=== PATIENT | female | born 1960 | race Caucasian/White ===

== ENCOUNTER 2019-09-16 12:44 | Inpatient (IN) ==
--- OUTSIDE RECORDS SUMMARY | 2019-09-16 12:46 | External Medical Summary | Continuity of Care Document ---
:1960 Author Name Kyle Chicas Address Unavailable Unavailable , Care Team Providers Name Role Phone Unavailable Unavailable Unavailable PCP, UNKNOWN Unavailable Unavailable Problems Active medical history not documented Allergies and Adverse Reactions No Known Allergies (Allergy) Medications Medications not documented Procedures Procedures not documented Immunizations PPD On: 15-May-2016 Plan of Treatment Planned Observations Planned Goals not documented Results No Known Results Results not documented
[2019-09-16] MEDS ORDERED: SODIUM CHLORIDE 0.9% 1000ML 1,000 ML IV ONE (13:56)
[2019-09-16] MEDS ORDERED: FAMOTIDINE 20MG IV PUSH 20 MG/5 ML SYR IV STA (13:56)
[2019-09-16] MEDS ORDERED: GI COCKTAIL ED USE PO ONE (13:56)
--- NOTE | 2019-09-16 14:07 | Emergency Department Note ---
History of Present Illness General Chief Complaint: Abdominal Pain Stated Complaint: ABDOMINAL PAIN Source: patient Mode of arrival: ambulatory Limitations: no limitations History of Present Illness Provider Complaint: abdominal pain Onset (ago): 1 month(s) Pain Consistency: intermittent Location: epigastric Radiation: none Migration to: no migration Severity: mild Maximum Pain Intensity: 4 Current Pain Intensity: 8 Quality: + stabbing and + sharp Relieved By: + nothing Exacerbated By: + nothing Context: + history of similar episodes Associated Symptoms: + nausea and + vomiting This 59-year-old female patient presents the emergency department today, ambulatory, complaining of abdominal pain. The patient states for the past 1 m ont, she has been experiencing intermittent episodes of epigastric pain. The patient states the pain will come on suddenly and feel like heartburn which progressively worsens and settles into the epigastrium. The patient states she was here on Sunday for this pain, had a negative CT and lab evaluation, was advised to follow-up as an outpatient with her PCP. 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 She does admit to eating meat loaf and mashed potatoes at 5:30 PM for dinner. She states she was told on Sunday that this may be her gallbladder and she will likely require further outpatient work-up, but her PCP cannot see her until this Sunday, the patient feels that she needs answer sooner than that. The patient states the pain she was experiencing overnight seem to somewhat subside approximately 1 hour ago. She has been taking Tylenol and Gaviscon when symptoms flareup without relief. She is currently on Protonix daily which she has been taking for less than 1 week. Patient denies any associated fever. When she experiences the episodes of pain, she does begin experiencing chills and vomiting. She denies any chest pain, dyspnea, lower abdominal pain, dysuria, hematuria, urinary frequency, changes in bowel habits, weakness, back pain, recent trauma, or other associated symptoms. Home Medications Home Medications Medication Instructions Recorded Confirmed Type albuterol sulfate 2 puff INHALATION UD PRN 09/12/19 09/16/19 History hydrochlorothiazide 25 mg PO DAILY 09/12/19 09/16/19 History pantoprazole 40 mg PO DAILY 09/12/19 09/16/19 History Allergies Allergy/AdvReac Type Severity Reaction Status Date / Time No Known Allergies Allergy Unverified 09/16/19 14:29 Past Med/Surg History Medical History Hypertension Social History Feels Safe at Home: Yes Smoking Status: Never smoker Review of Systems A total of 10 systems reviewed and were otherwise negative Physical Exam Vital Signs: Vital Signs - 24 hr 09/16/19 12:46 09/16/19 15:56 Temperature 36.7 C Temperature Source Oral Pulse Rate 75 Pulse Rate [Left F noreen] 61 Pulse Rhythm Regular Pulse Rhythm [Left Finger] Regular Pulse Strength [Le ft Finger] Normal Respiratory Rate 18 16 Respiratory Effort / Characteristics Non-Labored Non-Labored Sponta neous Respiratory Depth Normal Normal Respiratory Patter n Regular Regular Blood Pressure 159/91 H Blood Pressure Ernestine n 113 Blood Pressure Pos ition Sitting Blood Pressure Pos ition [Right Arm] Lying Pulse Oximetry 99 99 Oxygen Delivery Me thod Room Air Room Air Sepsis Recent Feve r Within 48 Hours No Sepsis Action Take n by Nursing No Action Required Physical Exam: VITALS: Vitals are noted on the nurse's note and reviewed by myself. Vital signs stable. GENERAL: This is a 59-year-old obese white female, in no acute distress, nondiaphoretic, well-developed well-nourished. SKIN: The skin was without rashes, erythema, edema, or bruising. There is no tenting of the skin. Capillary refill less than 2 seconds. HEAD: Normocephalic atraumatic. EYES: Conjunctivae without injection, sclerae without icterus. NECK: Supple without nuchal rigidity. No lymphadenopathy. No JVD. HEART: Regular rate and rhythm without murmurs gallops or rubs. LUNGS: Clear to auscultation bilaterally without wheezes, rales or rhonchi. No retractions or accessory muscle use. ABDOMEN: Positive bowel sounds x 4. Normal tympanic percussion. Mild epigastric tenderness palpation. Abdomen is otherwise soft, nontender, without masses or organomegaly. Presley sign negative. No guarding or rebound tenderness. No CVA tenderness bilaterally. MUSCULOSKELETAL: No muscle atrophy, erythema, or edema noted. Full range of motion without joint tenderness in all extremities. No tenderness to palpation. Normal gait. Strength 5/5 throughout. NEURO: Patient was alert and oriented to person place and time. No focal neurological deficits. Course Course The patient was seen and evaluated as above. Previous medical records reviewed. An order was placed for continuous cardiac monitoring. The monitor shows a normal sinus rhythm at a rate of 75 bpm. IV access obtained, labs drawn. Patient medicated with IV fluids, Pepcid, and GI cocktail. Imaging performed and reviewed by myself and radiologist as noted. Labs reviewed by myself. I discussed the findings with the patient at bedside. She was reassessed and is feeling better. I did recommend admission. The patient was agreeable. I discussed the case with my attending. I discussed the case with Nydia Anaya PA-C with [facility]. She did agree to see and evaluate the patient for admission. Administered Medications Discontinued Medications Al Hydrox/Mg Hydrox/Simethicone () 1 dose PO ONE ONE Stop: 09/16/19 13:57 Last Admin: 09/16/19 14:20 Dose: 1 dose Documented by: [id number] Sodium Chloride (Nss 1000ml) 1,000 mls @ 999 mls/hr IV .Q1H1M ONE Stop: 09/16/19 14:56 Last Infusion: 09/16/19 15:21 Dose: 0 mls/hr Documented by: [id number] Admin: 09/16/19 14:20 Dose: 999 mls/hr Documented by: [id number] Famotidine (Pepcid 20mg Iv Push) 20 mg in 5 mls @ 2.5 mls/min IV NOW STA Stop: 09/16/19 13:57 Last Admin: 09/16/19 14:20 Dose: 2.5 mls/min Documented by: [id number] Medical Decision Making Differential Diagnosis + peptic ulcer disease, + biliary pathology, + UTI, + obstruction, + mesenteric ischemia, + aortic pathology, + infections, + inflammatory bowel disease, + renal colic, + tubo-ovarian abscesses (female), + pelvic inflammatory disease (female), + abdominal pain, + appendicitis, + calculus of kidney, + constipation, + diverticulitis, + endometriosis, + gastroenteritis, + panc reatitis and + small bowel obstruction Medical Records Attestation: I reviewed the patient's medical records. Home Medications Current Medication List: was personally reviewed by me Laboratory Data Attestation: I reviewed the patient's lab results. No leukocytosis, anemia, thrombocytopenia. Renal function and electrolytes without significant abnormality. Transaminases elevated with an ALT of 359, AST 466. T bili 1.0. Troponin negative. Lipase greater than 11,000. Result diagrams: 09/16/19 14:02 09/16/19 15:32 Lab Results 09/16/19 09/16/19 09/16/19 Range/Units 14:02 14:02 14:08 WBC 7.03 (4.8-10.8) K/uL RBC 4.54 (4.2-5.4) M/uL Hgb 13.0 (12.0-16.0) g/dL Hct 39.7 (37-47) % MCV 87.4 (80-100) fL MCH 28.6 (25-34) pg MCHC 32.7 (32-36) g/dL RDW Std Deviation 44.6 (36.4-46.3) fL RDW Coeff of Marco A 13.9 (11.5-14.5) % Plt Count 322 (130-400) K/uL MPV 10.0 (7.4-10.4) fL Immature Gran % (Auto) 0.1 % Neut % (Auto) 70.6 % Lymph % (Auto) 19.2 % [place] % (Auto) 8.0 % Eos % (Auto) 1.8 % Baso % (Auto) 0.3 % Neut # (Auto) 4.96 (1.4-6.5) K/uL Lymph # (Auto) 1.35 (1.2-3.4) K/uL [place] # (Auto) 0.56 (0.11-0.59) K/uL Eos # (Auto) 0.13 (0-0.5) K/uL Baso # (Auto) 0.02 (0-0.2) K/uL Immature Gran # (Auto) 0.01 (0.00-0.02) K/uL Sodium 138 (136-145) mmol/L Potassium (3.5-5.1) mmol/L Chloride 104 (98-107) mmol/L Carbon Dioxide 29 (21-32) mmol/L Anion Gap 5.0 (3-11) BUN 18 (7-18) mg/dl Creatinine 0.83 (0.6-1.2) mg/dl Est Cr Clr Drug Dosing 85.9 ml/min Est GFR ( Amer) 90.7 Est GFR (Non-Af Amer) 78.3 BUN/Creatinine Ratio 21.8 H (10-20) Glucose 89 (70-99) mg/dl Calcium 9.2 (8.5-10.1) mg/dl Total Bilirubin 1.0 (0.2-1) mg/dl AST (15-37) U/L ALT 359 H (12-78) U/L Alkaline Phosphatase 117 (45-117) U/L Troponin I (0-0.045) ng/ml Total Protein 7.7 (6.4-8.2) gm/dl Albumin 3.5 (3.4-5.0) gm/dl Globulin 4.2 H (2.5-4.0) gm/dl Albumin/Globulin Ratio 0.8 L (0.9-2) Lipase 24262 H (73-393) U/L Urine Color Dark Yellow Urine Appearance Clear (Clear) Urine pH 8.0 H (4.5-7.5) Ur Specific [place] 1.026 (1.000-1.030) Urine Protein Negative (Negative) Urine Glucose (UA) Negative (Negative) Urine Ketones Negative (Negative) Urine Blood Negative (Negative) Urine Nitrite Negative (Negative) Urine Bilirubin 1+ H (Negative) Urine Urobilinogen Negative (Negative) Ur Leukocyte Esterase Negative (Negative) 09/16/19 Range/Units 15:32 WBC (4.8-10.8) K/uL RBC (4.2-5.4) M/uL Hgb (12.0-16.0) g/dL Hct (37-47) % MCV (80-100) fL MCH (25-34) pg MCHC (32-36) g/dL RDW Std Deviation (36.4-46.3) fL RDW Coeff of Marco A (11.5-14.5) % Plt Count (130-400) K/uL MPV (7.4-10.4) fL Immature Gran % (Auto) % Neut % (Auto) % Lymph % (Auto) % [place] % (Auto) % Eos % (Auto) % Baso % (Auto) % Neut # (Auto) (1.4-6.5) K/uL Lymph # (Auto) (1.2-3.4) K/uL [place] # (Auto) (0.11-0.59) K/uL Eos # (Auto) (0-0.5) K/uL Baso # (Auto) (0-0.2) K/uL Immature Gran # (Auto) (0.00-0.02) K/uL Sodium (136-145) mmol/L Potassium 3.2 L (3.5-5.1) mmol/L Chloride (98-107) mmol/L Carbon Dioxide (21-32) mmol/L Anion Gap (3-11) BUN (7-18) mg/dl Creatinine (0.6-1.2) mg/dl Est Cr Clr Drug Dosing ml/min Est GFR ( Amer) Est GFR (Non-Af Amer) BUN/Creatinine Ratio (10-20) Glucose (70-99) mg/dl Calcium (8.5-10.1) mg/dl Total Bilirubin (0.2-1) mg/dl AST 466 H (15-37) U/L ALT (12-78) U/L Alkaline Phosphatase (45-117) U/L Troponin I < 0.015 (0-0.045) ng/ml Total Protein (6.4-8.2) gm/dl Albumin (3.4-5.0) gm/dl Globulin (2.5-4.0) gm/dl Albumin/Globulin Ratio (0.9-2) Lipase (73-393) U/L Urine Color Urine Appearance (Clear) Urine pH (4.5-7.5) Ur Specific [place] (1.000-1.030) Urine Protein (Negative) Urine Glucose (UA) (Negative) Urine Ketones (Negative) Urine Blood (Negative) Urine Nitrite (Negative) Urine Bilirubin (Negative) Urine Urobilinogen (Negative) Ur Leukocyte Esterase (Negative) Imaging Data Radiologist's Impression: ABDOMINAL ULTRASOUND, RIGHT UPPER QUADRANT HISTORY: Right upper quadrant pain.. COMPARISON: None. FINDINGS: Pancreas: The pancreas demonstrates a normal echotexture. Liver: A 1.1 cm cyst within the left hepatic lobe. Gallbladder: Multiple small gallstones. Gallbladder wall is borderline thickened at 3 mm. No pericholecystic fluid. Negative sonographic Presley sign. CBD: Borderline dilated measuring between 4 and 7 mm. Right kidney: No hydronephrosis. IMPRESSION: 1. Cholelithiasis. There is borderline gallbladder wall thickening at 3 mm. However, there is a negative sonographic Presley sign. 2. Borderline dilated common bile duct measuring between 4 and 7 mm. ACT 112: Negative or not required by law. Electronically signed by: Isaak Doan M.D. 09/16/2019 3:29 PM ECG Data Attestation: I personally reviewed and interpreted this ECG as follows: Indication: abdominal pain Rate (beats per minute): 72 Rhythm: normal sinus Findings: no ST depression, no T-wave inversion, no ST elevation and no acute ischemic change Comparison ECG Date: no prior available Blood Pressure Blood Pressure Findings: Normal blood pressure MDM Narrative This 59-year-old female patient presents the emergency department today for evaluation of epigastric pain. The patient was seen here on Sunday at the request of her PCP due to an elevated lipase. Upon arrival to the ED on Sunday, her lipase was within normal limits, as were her LFTs. Patient had another flareup and episode of pain which began at 1 AM this morning after eating meat loaf and mashed potatoes. She was offered an appointment on Sunday with her PCP, but felt that she wanted to answer sooner because of her job. Work-up here in the ED did show an elevated lipase of greater than 11,000. LFTs were elevated and gallbladder wall thickening at 3 mm with multiple small gallstones and a borderline dilated common bile duct noted on ultrasound. Given the patient's symptoms and findings, I suspect pancreatitis associated with the gallstones as a cause of patient's symptoms. She will be admitted to the hospitalist service for further evaluation management and with gastroenterology consult. Please see hospitalist dictation regarding ongoing management care of this patient. The chart was completed utilizing [employer] Speech voice recognition software. Grammatical errors, random word insertions, pronoun errors, and incomplete sentences are an occasional consequence of this system due to software limitations, ambient noise, and hardware issues. Any formal questions or con cerns about the content, text, or information contained within the body of this dictation should be directly addressed to the provider for clarification. Impression & Plan Epigastric abdominal pain, Pancreatitis, Cholelithiasis Discharge Plan Visit Data Chief Complaint: Abdominal Pain Stated Complaint: ABDOMINAL PAIN ED Provider: Theo Santillan ED Midlevel Provider: Paula Hogan Discharge Problem: Epigastric abdominal pain, Pancreatitis, Cholelithiasis Patient Disposition: Admitted As Inpatient Condition: Good Forms Stand Alone Forms: [facility] Emergency Department, Important Visit Information Prescriptions Prescriptions: No Action pantoprazole 40 mg tablet,delayed release (DR/EC) 40 mg PO DAILY RF: 0 hydrochlorothiazide 25 mg tablet 25 mg PO DAILY RF: 0 albuterol sulfate 90 mcg/actuation HFA aerosol inhaler 2 puff INHALATION UD PRN (Reason: Shortness Of Breath Or Wheezing) RF: 0 Referrals Referrals: Isamar Gandara MD [Primary Care Provider] -
[2019-09-16 14:17] LABS: Basophils # (auto) 0.02 K/uL (0-0.2); Basophils % (auto) 0.3 %; Eosinophils # (auto) 0.13 K/uL (0-0.5); Eosinophils % (auto) 1.8 %; Hematocrit (blood only) 39.7 % (37-47); Immature Granulocytes # (auto) 0.01 K/uL (0.00-0.02); Immature Granulocytes % (auto) 0.1 %; Lymphocytes # (auto) 1.35 K/uL (1.2-3.4); Lymphocytes % (auto) 19.2 %; Mean Corpuscular Hemoglobin 28.6 pg (25-34); Mean Corpuscular Hgb Conc 32.7 g/dL (32-36); Mean Corpuscular Volume 87.4 fL (80-100); Monocytes # (auto) 0.56 K/uL (0.11-0.59); Neutrophils # (auto) 4.96 K/uL (1.4-6.5); Neutrophils % (auto) 70.6 %; Platelet Count 322 K/uL (130-400); RDW Coefficient of Variation 13.9 % (11.5-14.5); RDW Standard Deviation 44.6 fL (36.4-46.3); Red Blood Count 4.54 M/uL (4.2-5.4); White Blood Count 7.03 K/uL (4.8-10.8)
--- NOTE | 2019-09-16 14:40 | XRay Report ---
XR chest 1V portable HISTORY: epigastric pain COMPARISON: None. FINDINGS: The lungs are clear. Cardiac silhouette is normal in size. No pleural effusions. No pneumot horax. IMPRESSION: No acute process. ACT 112: Negative or not required by law. Electronically signed by: Isaak Doan M.D. 09/16/2019 2:38 PM
[2019-09-16 14:55] LABS: Albumin Globulin Ratio 0.8 (0.9-2); Albumin Level 3.5 gm/dl (3.4-5.0); BUN Creatinine Ratio 21.8 (10-20); Calcium 9.2 mg/dl (8.5-10.1); Creatinine Clr Calc Pharmacy 85.9 ml/min; Est GFR (African American) 90.7; Est GFR (Non-African American) 78.3; Globulin 4.2 gm/dl (2.5-4.0); Total Protein 7.7 gm/dl (6.4-8.2)
--- NOTE | 2019-09-16 15:30 | Ultrasound Report ---
ABDOMINAL ULTRASOUND, RIGHT UPPER QUADRANT HISTORY: Right upper quadrant pain.. COMPARISON: None. FINDINGS: Pancreas: The pancreas demonstrates a normal echotexture. Liver: A 1.1 cm cyst within the left hepatic lobe. Gallbladder: Multiple small gallstones. Gallbladder wall is borderline thickened at 3 mm. No perichol ecystic fluid. Negative sonographic Presley sign. CBD: Borderline dilated measuring between 4 and 7 mm. Right kidney: No hydronephrosis. IMPRESSION: 1. Cholelithiasis. There is borderline gallbladder wall thickening at 3 mm. However, there is a negat kaleb sonographic Presley sign. 2. Borderline dilated common bile duct measuring between 4 and 7 mm. ACT 112: Negative or not required by law. Electronically signed by: Isaak Doan M.D. 09/16/2019 3:29 PM
[2019-09-16 16:00] LABS: Potassium 3.2 mmol/L (3.5-5.1)
--- NOTE | 2019-09-16 16:00 | Electrocardiogram Report ---
Test Reason : Blood Pressure : / mmHG Vent. Rate : 072 BPM Atrial Rate : 072 BPM P-R Int : 180 ms QRS Dur : 086 ms QT Int : 416 ms P-R-T Axes : 053 -38 016 degrees QTc Int : 455 ms Normal sinus rhythm Possible Left atrial enlargement Left axis deviation Nonspecific T wave abnormality Abnormal ECG No previous ECGs available Confirmed by Duncan Baca [id number]) on 09/16/2019 4:00:13 PM Referred By: REFERRED SELF Confirmed By:Duncan Baca
[2019-09-16 16:05] LABS: Appearance Urine Clear (Clear); Blood Urine Negative (Negative); Color Urine Dark Yellow; Glucose Urine UA Negative (Negative); Ketones Urine Negative (Negative); Leukocyte Esterase Urine Negative (Negative); Nitrite Urine Negative (Negative); Protein Urine Negative (Negative); Specific Gravity Urine 1.026 (1.000-1.030); Urobilinogen Urine Negative (Negative)
[2019-09-16 16:07] LABS: Bilirubin Urine 1+ (Negative)
[2019-09-16 16:08] LABS: Ictotest Urine Positive (Negative)
[2019-09-16 16:09] LABS: Aspartate Aminotransferase 466 U/L (15-37); Troponin I < 0.015 ng/ml (0-0.045)
--- NOTE | 2019-09-16 16:28 | History & Physical Report ---
Date of Service September 16, 2019 Assessment & Plan (1) Pancreatitis: (2) Elevated liver function tests: (3) Cholelithiasis: Pt is 59 y/o F with PMH HTN, diastolic dysfunction presented to ER with c/o epigastric pain started last night. C/O epigastric pain that is sharp and radiates to back that started at 1am and lasted until noon today. Associated with chills when has the pain and vomiting. This has been intermittent over the past month. No ETOH use. In ER afebrile, P: 75, R: 18, BP: 159/91, 99% on RA. No leukocytosis, T Bili: 1.0, AST: 466, ALT: 359, Alk Phos: 117, Lipase: 11,254 ABD US: Cholelithiasis. There is borderline gallbladder wall thickening at 3 mm. However, there is a negative sonographic Presley sign. Borderline dilated common bile duct measuring between 4 and 7 mm. DDX: gallstone pancreatitis. Does not appear to be acute cholecystitis. -In ER given 1L NSS, pepcid, GI cocktail -Pt currently reports epigastric discomfort at 1/10 on pain scale -NPO -LR at 125ml/hr -Morphine prn, Zofran prn -Acute hepatitis panel pending -MRCP -GI consult -CBC, CMP, liver profile, lipid panel in am (4) Hypertension: -Hold HCTZ at this time (5) Diastolic dysfunction: H/O echo in 2019 with grade 1 diastolic dysfunction with EF: 60-65% Appears Euvolemic at this time DVT Prophylaxis -SCDs Full Code Follows with Dr Keyon Patel for routine care Pt was seen and care coordinated with Dr Cazares. See addendum History of Present Illness Chief Complaint: Abdominal pain Primary Care Provider: Isamar Patel MD Pt is 59 y/o F with PMH HTN, diastolic dysfunction presented to ER with c/o epigastric pain started last night. C/O epigastric pain that is sharp and radiates to back that started at 1am and lasted until noon today. Associated with chills when has the pain and vomiting. Tried 2 Tylenol and Gaviscon without relief. Rated pain 10/10 on pain scale. Pain almost resolved prior to ER arrival today. Did eat meatloaf and mashed potatoes and gravy for dinner. Pt with intermittent heartburn and similar epigastric pain x 1 month. Has tried taking 2 tabs of Tylenol approx 4-5 times over the past month for this pain without relief. Seen at PCP office on 09/11/2019 and had lipase of 1300, AST:52, ALT: 50. Seen in ER on 09/12/2019 and at that time had normal LFTs and lipase and benign CT abd/pelvis. Was started on Protonix for possible GERD. Denies fever, diaphoresis, diarrhea, constipation, melena, hematochezia, [place], dizziness, syncope, vision changes, neck pain, CP, SOB, orthopnea, palpitations, cough, sore throat, choking, otalgia, rhinorrhea, paresthesias, weakness, extremity weakness, extremity edema, rashes, urinary symptoms. Denies ETOH use. Allergies Allergy/AdvReac Type Severity Reaction Status Date / Time No Known Allergies Allergy Unverified 09/16/19 14:29 Home Medications Home Medications Medication Instructions Recorded Confirmed Type albuterol sulfate 2 puff INHALATION UD PRN 09/12/19 09/16/19 History hydrochlorothiazide 25 mg PO DAILY 09/12/19 09/16/19 History pantoprazole 40 mg PO DAILY 09/12/19 09/16/19 History Past Med/Surg History Medical History (Updated 09/16/19 @ 17:15 by Daily Anaya PA-C) Diastolic dysfunction grade 1 diastolic dysfunction on echo in 2019 Hypertension Surgical History (Updated 09/16/19 @ 17:09 by Daily Anaya PA-C) History of hysterectomy Family History (Updated 09/16/19 @ 17:10 by Daily Anaya PA-C) Grandmother (Paternal) Breast cancer Father Cancer Social History (Updated 09/16/19 @ 17:10 by Daily Anaya PA-C) Preferred Language: Belarusian Communication Ability: Effective 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 Beliefs That Will Affect Care: None Current Living Situation: Alone Other Information That Helps Us Care for You: No Feels Safe at Home: Yes Safety Concerns: Feels Safe At This Time Smoking Status: Never smoker Hx Alcohol Use: No Hx Substance Use: No Review of Systems Review of Systems: All systems reviewed & are unremarkable except as noted in HPI & below Physical Exam Physical Exam: General: no distress, obese Head: normocephalic, atraumatic Eyes: EOM's intact, conjunctiva non-injected, anicteric ENT: normal inspection external ears, nose, mucous membranes moist Neck: supple, trachea midline Lungs: clear, no respiratory distress, no wheezing/rhonchi/rales CV: RRR, no murmur, no pretibial edema Abd: normal BS, soft,+tenderness to palpation epigastric region only Ext: no cyanosis, no calf tenderness Neuro: A&O x 3, no focal deficits noted, normal affect Skin: warm, dry Results & Data Results & Data ([facility]) Vital Signs (Past 12 Hours) Vital Signs Temp Pulse Pulse Resp BP BP Pulse Ox 09/16/19 15:56 61 16 164/89 H 99 09/16/19 12:46 36.7 C 75 18 159/91 H 99 Laboratory Results Short CBC 09/16/19 09/16/19 Range/Units 14:02 14:02 WBC 7.03 (4.8-10.8) K/uL Hgb 13.0 (12.0-16.0) g/dL Hct 39.7 (37-47) % Plt Count 322 (130-400) K/uL AST (15-37) U/L BMP 09/16/19 09/16/19 14:02 15:32 Sodium 138 Potassium 3.2 L Chloride 104 Carbon Dioxide 29 BUN 18 Creatinine 0.83 Glucose 89 Calcium 9.2 Cardiac Enzymes 09/16/19 Range/Units 15:32 Troponin I < 0.015 (0-0.045) ng/ml Liver Function 09/16/19 09/16/19 Range/Units 14:02 15:32 Total Bilirubin 1.0 (0.2-1) mg/dl AST 466 H (15-37) U/L ALT 359 H (12-78) U/L Alkaline Phosphatase 117 (45-117) U/L Albumin 3.5 (3.4-5.0) gm/dl Urine 09/16/19 Range/Units 14:08 Urine Color Dark Yellow Urine Appearance Clear (Clear) Urine pH 8.0 H (4.5-7.5) Ur Specific [place] 1.026 (1.000-1.030) Urine Protein Negative (Negative) Urine Glucose (UA) Negative (Negative) Diagnostic Findings ABD US: IMPRESSION: 1. Cholelithiasis. There is borderline gallbladder wall thickening at 3 mm. However, there is a negative sonographic Presley sign. 2. Borderline dilated common bile duct measuring between 4 and 7 mm. CXR: IMPRESSION: No acute process. Code Status & VTE Plan VTE Prophylaxis Plan VTE Prophylaxis will be ordered: Yes Supervising Physician Co-Signing Physician Notes Patient is a 59-year-old female with history of hypertension, diastolic dysfunction and other medical problems presents with history of epigastric sharp, abdominal pain which radiates to back. Reports associated chills, no vomiting. Please review HPI for complete details of presentation. Abdominal ultrasound suggestive of cholelithiasis, borderline gallbladder wall thickening 3 mm, negative Presley sign and borderline dilated common bile duct between 4 to 7 mm. Lipase is elevated at 11,254. Patient denies any alcohol use. No known history of dyslipidemia. Patient also unaware of cholelithiasis in the past. On exam patient is obese, no apparent distress, normocephalic atraumatic, lungs are clear to auscultation, S1-S2, no murmur, abdomen soft, epigastric tenderness, no guarding or rigidity, normal bowel sounds, no pedal edema, grossly no focal neurologic deficits. Patient is admitted for management of pancreatitis likely secondary to gallstones. We will keep her n.p.o. for now. Start on IV fluids, pain control and check MRCP. Gastroenterology consulted. Also check lipid panel, hepatitis panel. If MRCP positive, will likely need ERCP. Replace potassium supplements for hypokalemia. I personally reviewed the record. Patient is interviewed and examined at bedside. Patient's care is coordinated with Daily Anaya PA-C. Please refer to the documentation above for details of patient's presentation and for discussion of other issues. (1) Pancreatitis Acute pancreatitis complication: no infection or necrosis Chronicity: acute Pancreatitis type: biliary Qualified Code(s): K85.10 - Biliary acute pancreatitis without necrosis or infection (2) Cholelithiasis Biliary obstruction: without biliary obstruction Cholecystitis presence: without cholecystitis Cholelithiasis location: gallbladder Qualified Code(s): K80.20 - Calculus of gallbladder without cholecystitis without obstruction
[2019-09-16] MEDS ORDERED: POTASSIUM CHLORIDE 20 MEQ TABCR PO STA (18:05)
[2019-09-16] MEDS ORDERED: ONDANSETRON INJ 2 MG/ML 2 ML VIAL IV PRN (18:05)
[2019-09-16] MEDS ORDERED: MoRPHine SULFATE 2 MG/ML CARP IV PRN (18:05)
[2019-09-16] MEDS: LACTATED RINGER'S 1,000 ML IV SCH (19:31)
[2019-09-16] MEDS: POTASSIUM CHLORIDE / WTR 10 MEQ/100 ML PLCT IV SCH ×2 (19:33→21:11)
--- NOTE | 2019-09-16 19:46 | Magnetic Resonance Report ---
MR MRCP CLINICAL HISTORY: pancreatitis, gallstone COMPARISON STUDY: Biliary ultrasound dated 09/16/2019, CT scan dated 09/12/2019 FINDINGS: A breath-hold MRCP was performed. MIP images were acquired. There are small nonspecific T2 bright hepatic lesions. These likely represent cysts or hemangiomas. T here are tiny gallstones present. The common bile duct is dilated measuring up to 1 cm. There is unex plained smooth narrowing of the distal common bile duct. The etiology of this finding is not known. T his could be secondary to a benign or malignant stricture, or extrinsic compression. An ERCP is recom mended in follow-up. There is no pancreatic ductal dilatation. IMPRESSION: 1. Multiple tiny gallstones 2. Unexplained smooth narrowing/stricture of the distal 2 cm of the common bile duct. 3. Dilatation (10 mm) of the common bile duct proximal to the narrowing/stricture. 4. An ERCP is recommended in follow-up. ACT 112: Negative or not required by law. Electronically signed by: Caleb Lovett M.D. 09/16/2019 7:44 PM
[2019-09-16 20:28] LABS: Hepatitis B Surface Antigen Neg (Neg)
[2019-09-16 20:56] LABS: Hepatitis C IgG 13Yrs+Old_Rflx Neg (Neg)
[2019-09-17] MEDS: LACTATED RINGER'S 1,000 ML IV SCH ×3 (03:27→19:34)
[2019-09-17 06:07] LABS: Hematocrit (blood only) 37.9 % (37-47); Hemoglobin 12.4 g/dL (12.0-16.0); Mean Corpuscular Hemoglobin 28.8 pg (25-34); Mean Corpuscular Hgb Conc 32.7 g/dL (32-36); Mean Corpuscular Volume 88.1 fL (80-100); Platelet Count 265 K/uL (130-400); RDW Coefficient of Variation 14.2 % (11.5-14.5); RDW Standard Deviation 45.5 fL (36.4-46.3); White Blood Count 4.88 K/uL (4.8-10.8)
[2019-09-17 06:40] LABS: Alanine Aminotransferase 244 U/L (12-78); Albumin Level 2.9 gm/dl (3.4-5.0); Aspartate Aminotransferase 178 U/L (15-37); BUN Creatinine Ratio 14.5 (10-20); Blood Urea Nitrogen 10 mg/dl (7-18); Calcium 8.9 mg/dl (8.5-10.1); Carbon Dioxide 30 mmol/L (21-32); Chloride 108 mmol/L (98-107); Creatinine Clr Calc Pharmacy 100.6 ml/min; Est GFR (African American) 109.6; Est GFR (Non-African American) 94.6; Glucose 92 mg/dl (70-99); Lipase 316 U/L (73-393); Potassium 3.4 mmol/L (3.5-5.1); Sodium 142 mmol/L (136-145)
[2019-09-17 06:46] LABS: Albumin Globulin Ratio 0.8 (0.9-2); Alkaline Phosphatase 102 U/L (45-117); Bilirubin Direct < 0.1 mg/dl (0-0.2); Bilirubin,Total 0.2 mg/dl (0.2-1); Chol HDL Ratio 4; Cholesterol 171 mg/dl (0-200); Globulin 3.7 gm/dl (2.5-4.0); HDL Cholesterol 42 mg/dl; LDL Cholesterol Calculated 107 mg/dl; Total Protein 6.6 gm/dl (6.4-8.2); Triglycerides 108 mg/dl (0-150); VLDL Cholesterol 22 mg/dl
[2019-09-17] MEDS ORDERED: INDOMETHACIN 50 MG SUPP PR SCH (08:20)
--- NOTE | 2019-09-17 09:04 | Gastrointestinal Consultation ---
Date of Consultation September 17, 2019 Assessment & Plan (1) Pancreatitis: (2) Cholelithiasis: Pt is a 59 yo female w epigastric pain radiating to RUQ abd and back. Labs notable for elevated transaminases and lipase. Abd u/s and MRCP showed signs of cholelithiasis, distal CBD narrowing and CBD dilation proximal to narrowing. Suspect possible gallstone pancreatitis. - Continue IVF w Lactated Ringers - Keep NPO - Plan for EUS/ERCP by Dr. Keyana Griffith in OR today vs tomorrow depending on OR schedule - Symptomatic management w antiemetics and analgesics prn - Surgery consult to eval for cholecystectomy Supervising Physician Co-Signing Physician Notes I saw and evaluated the patient. She presented with abdominal pain and was found to have significant elevation of her liver enzymes in addition to mild pancreatitis. Presentation is very suggestive of gallstone pancreatitis. Unfortunately her MRI showed indistinct changes at the distal duct. Physical No obvious distress, no scleral icterus Mild right-sided abdominal tenderness Impressoin: Patient presenting with signs and symptoms suggestive of gallstone pancreatitis. Given the patient's presentation and negative imaging we will proceed with upper endoscopy and endoscopic ultrasound this afternoon. If a common bile duct stone is found we will then proceed with ERCP. We have discussed the risks and benefits of the procedures to include bleeding, infection, perforation, pain, pancreatitis and failed biliary cannulation in the event of ERCP. History of Present Illness Reason for Consultation: Pancreatitis Requesting Physician: Dr. Álvaro Turk Attending Physician: Dr. Keyana Griffith History of Present Illness Pt is a 59 y/o female who presented in 09/11 and then yesterday w c/o epigastric pain which progressed to radiating towards RUQ and back. She has had intermittent epigastric pain for over 2 weeks now. Last episode which started Sunday was after eating some meatloaf. She denies associated jaundice, fever. + chills. No n/v, changes in bowel habits. On eval yesterday labs notable for elevated AST/ALT, and lipase. Abd imaging w u/s and MRCP showed signs of cholelithiasis, distal CBD narrowing and CBD dilation 10mm proximal to narrowing site. Pt denies ETOH, tobacco products. Denies family hx of autoimmune dz, hepatobiliary or pancreatic ca. Allergies Allergy/AdvReac Type Severity Reaction Status Date / Time No Known Allergies Allergy Unverified 09/16/19 14:29 Home Medications Home Medications Medication Instructions Recorded Confirmed Type albuterol sulfate 2 puff INHALATION UD PRN 09/12/19 09/16/19 History hydrochlorothiazide 25 mg PO DAILY 09/12/19 09/16/19 History pantoprazole 40 mg PO DAILY 09/12/19 09/16/19 History Patient History Medical History Diastolic dysfunction grade 1 diastolic dysfunction on echo in 2019 Hypertension Surgical History History of hysterectomy Family History Grandmother (Paternal) Breast cancer Father Cancer Social History Preferred Language: Cymraes Communication Ability: Effective Accordion Maker Required: No Beliefs That Will Affect Care: None Current Living Situation: Alone Other Information That Helps Us Care for You: No Feels Safe at Home: Yes Safety Concerns: Feels Safe At This Time Smoking Status: Never smoker Hx Alcohol Use: No Hx Substance Use: No Review of Systems Review of Systems: All systems reviewed & are unremarkable except as noted in HPI & below Physical Exam Constitutional: WD/WN, vitals as above well groomed, cooperative and comfortable Eyes: PERRL, conjunctivae normal, anicteric sclerae ENMT: external ear and nose normal, oropharynx normal Respiratory: normal respiratory effort, lungs clear to auscultation Cardiovascular: RRR, no murmur, no edema Gastrointestinal (Abdomen): normal bowel sounds, soft, nontender, no hepatosplenomegaly Skin: no rashes, warm and dry no jaundice Psychiatric: A+Ox3, euthymic affect Lymphatic: no lymphedema Results & Data ([facility]) Vital Signs (Past 12 Hours) Vital Signs Temp Pulse Resp BP Pulse Ox 09/17/19 07:48 36.7 C 65 18 139/81 96 09/17/19 03:17 36.5 C 72 16 135/77 95 09/16/19 22:52 37.1 C 65 16 148/81 H 98 (1) Pancreatitis Acute pancreatitis complication: no infection or necrosis Chronicity: acute Pancreatitis type: biliary Qualified Code(s): K85.10 - Biliary acute pa ncreatitis without necrosis or infection (2) Cholelithiasis Biliary obstruction: without biliary obstruction Cholecystitis presence: without cholecystitis Cholelithiasis location: gallbladder Qualified Code(s): K80.20 - Calculus of gallbladder without cholecystitis without obstruction
[2019-09-17 09:49] LABS: Prothrombin Time 10.5 Seconds (9.0-12.0)
--- NOTE | 2019-09-17 11:37 | Surgery Consultation ---
Date of Consultation September 17, 2019 Assessment & Plan (1) Elevated liver function tests: pt is a 59 year-old female who was admitted to hospital for abdominal pain, IMP: pancreatitis, cholelithiasis, abnormal LFTS Plan, pt will have ERCP by GI doctor today, I recommend to do laparoscopic ch olecystectomy, possible open or cholangiogram tomorrow, D/W benefits, risks and alternatives of the surgery, the risks - infection, bleeding, injury CBD, pt understood, she agrees with the surgery, i answered all questions, (2) Pancreatitis: (3) Cholelithiasis: Supervising Physician Co-Signing Physician Notes Patient is a 59-year-old female with history of hypertension, diastolic dysfunction and other medical problems presents with history of epigastric sharp, abdominal pain which radiates to back. Reports associated chills, no vomiting. Please review HPI for complete details of presentation. Abdominal ultrasound suggestive of cholelithiasis, borderline gallbladder wall thickening 3 mm, negative Presley sign and borderline dilated common bile duct between 4 to 7 mm. Lipase is elevated at 11,254. Patient denies any alcohol use. No known history of dyslipidemia. Patient also unaware of cholelithiasis in the past. On exam patient is obese, no apparent distress, normocephalic atraumatic, lungs are clear to auscultation, S1-S2, no murmur, abdomen soft, epigastric tenderness, no guarding or rigidity, normal bowel sounds, no pedal edema, grossly no focal neurologic deficits. Patient is admitted for management of pancreatitis likely secondary to gallstones. We will keep her n.p.o. for now. Start on IV fluids, pain control and check MRCP. Gastroenterology consulted. Also check lipid panel, hepatitis panel. If MRCP positive, will likely need ERCP. Replace potassium supplements for hypokalemia. I personally reviewed the record. Patient is interviewed and examined at bedside. Patient's care is coordinated with Daily Anaya PA-C. Please refer to the documentation above for details of patient's presentation and for discussion of other issues. History of Present Illness Attending Physician: Álvaro Turk MD History of Present Illness Chief Complaint: Abdominal pain Primary Care Provider: Isamar Patel MD Pt is 59 y/o F with PMH HTN, diastolic dysfunction presented to ER with c/o epigastric pain started last night. C/O epigastric pain that is sharp and radiates to back that started at 1am and lasted until noon today. Associated with chills when has the pain and vomiting. Tried 2 Tylenol and Gaviscon without relief. Rated pain 10/10 on pain scale. Pain almost resolved prior to ER arrival today. Did eat meatloaf and mashed potatoes and gravy for dinner. Pt with intermittent heartburn and similar epigastric pain x 1 month. Has tried taking 2 tabs of Tylenol approx 4-5 times over the past month for this pain without relief. Seen at PCP office on 09/11/2019 and had lipase of 1300, AST:52, ALT: 50. Seen in ER on 09/12/2019 and at that time had normal LFTs and lipase and benign CT abd/pelvis. Was started on Protonix for possible GERD. Denies fever, diaphoresis, diarrhea, constipation, melena, hematochezia, PARISI, dizziness, syncope, vision changes, neck pain, CP, SOB, orthopnea, palpitations, cough, sore throat, choking, otalgia, rhinorrhea, paresthesias, weakness, extremity weakness, extremity edema, rashes, urinary symptoms. Denies ETOH use. I ( Steve Ferreira MD) got a call for consult cholelithiasis, I reviewed pt's H/P , labs, U/S, MRCP, with pt, pt is still have some RUQ pain, Allergies Allergy/AdvReac Type Severity Reaction Status Date / Time No Known Allergies Allergy Unverified 09/16/19 14:29 Home Medications Home Medications Medication Instructions Recorded Confirmed Type albuterol sulfate 2 puff INHALATION UD PRN 09/12/19 09/16/19 History hydrochlorothiazide 25 mg PO DAILY 09/12/19 09/16/19 History pantoprazole 40 mg PO DAILY 09/12/19 09/16/19 History Past Med/Surg History Medical History (Updated 09/16/19 @ 17:15 by Daily Anaya PA-C) Diastolic dysfunction grade 1 diastolic dysfunction on echo in 2019 Hypertension Surgical History (Updated 09/16/19 @ 17:09 by Daily Anaya PA-C) History of hysterectomy Family History (Updated 09/16/19 @ 17:10 by Daily Anaya PA-C) Grandmother (Paternal) Breast cancer Father Cancer Social History (Updated 09/16/19 @ 17:10 by Daily Anaya PA-C) Preferred Language: Argentine Communication Ability: Effective Cancer Spec Required: No Beliefs That Will Affect Care: None Current Living Situation: Alone Other Information That Helps Us Care for You: No Feels Safe at Home: Yes Safety Concerns: Feels Safe At This Time Smoking Status: Never smoker Hx Alcohol Use: No Hx Substance Use: No Review of Systems Review of Systems: All systems reviewed & are unremarkable except as noted in HPI & below Allergies Allergy/AdvReac Type Severity Reaction Status Date / Time No Known Allergies Allergy Unverified 09/16/19 14:29 Home Medications Home Medications Medication Instructions Recorded Confirmed Type albuterol sulfate 2 puff INHALATION UD PRN 09/12/19 09/16/19 History hydrochlorothiazide 25 mg PO DAILY 09/12/19 09/16/19 History pantoprazole 40 mg PO DAILY 09/12/19 09/16/19 History Patient History Medical History Diastolic dysfunction grade 1 diastolic dysfunction on echo in 2019 Hypertension Surgical History History of hysterectomy Family History Grandmother (Paternal) Breast cancer Father Cancer Social History Preferred Language: Argentine Communication Ability: Effective Cancer Spec Required: No Beliefs That Will Affect Care: None Current Living Situation: Alone Other Information That Helps Us Care for You: No Feels Safe at Home: Yes Safety Concerns: Feels Safe At This Time Smoking Status: Never smoker Hx Alcohol Use: No Hx Substance Use: No Review of Systems Review of Systems: All systems reviewed & are unremarkable except as noted in HPI & below Constitutional: as per Subjective / HPI Eyes: as per Subjective / HPI Ear, Nose, Mouth, Throat: as per Subjective / HPI Respiratory: as per Subjective / HPI Cardiovascular: Additional Comments: HTN, diastolic dysfunction Gastrointestinal: as per Subjective / HPI Genitourinary: as per Subjective / HPI Musculoskeletal: as per Subjective / HPI Integumentary: as per Subjective / HPI Neurologic: as per Subjective / HPI Psychiatric: as per Subjective / HPI Endocrine: as per Subjective / HPI Hematologic / Lymphatic: as per Subjective / HPI Physical Exam Constitutional: WD/WN, vitals as above well developed and well nourished Eyes: PERRL, conjunctivae normal, anicteric sclerae ENMT: external ear and nose normal, oropharynx normal Neck: trachea midline, no thyromegaly Respiratory: normal respiratory effort, lungs clear to auscultation normal respiratory effort Cardiovascular: RRR, no murmur, no edema Rate/Rhythm: regular rate and regular rhythm Heart Sounds: normal S1 and normal S2 Gastrointestinal (Abdomen): normal bowel sounds, soft, nontender, no hepatosplenomegaly Percussion/Palpation: + abdomen tender mild tenderness at RUQ, no rebound pain, no distend, BS + Musculoskeletal: no cyanosis or clubbing, extremities motor strength 5/5 Skin: no rashes, warm and dry Neurologic: patellar DTR's 2+ bilat, sensation intact Psychiatric: Orientation: alert and oriented x 3 Results & Data Vital Signs (Past 12 Hours) Vital Signs Temp Pulse Resp BP Pulse Ox 09/17/19 07:48 36.7 C 65 18 139/81 96 09/17/19 03:17 36.5 C 72 16 135/77 95 Laboratory Results Abnormal lab results 09/16/19 09/16/19 09/16/19 Range/Units 14:02 14:08 15:32 Potassium 3.2 L (3.5-5.1) mmol/L Chloride (98-107) mmol/L BUN/Creatinine Ratio 21.8 H (10-20) AST 466 H (15-37) U/L ALT 359 H (12-78) U/L Albumin (3.4-5.0) gm/dl Globulin 4.2 H (2.5-4.0) gm/dl Albumin/Globulin Ratio 0.8 L (0.9-2) Lipase 03546 H (73-393) U/L Urine pH 8.0 H (4.5-7.5) Urine Bilirubin 1+ H (Negative) Acetaminophen (10-30) ug/ml 09/16/19 09/17/19 Range/Units 19:33 05:41 Potassium 3.4 L (3.5-5.1) mmol/L Chloride 108 H (98-107) mmol/L BUN/Creatinine Ratio (10-20) AST 178 H (15-37) U/L ALT 244 H (12-78) U/L Albumin 2.9 L (3.4-5.0) gm/dl Globulin (2.5-4.0) gm/dl Albumin/Globulin Ratio 0.8 L (0.9-2) Lipase (73-393) U/L Urine pH (4.5-7.5) Urine Bilirubin (Negative) Acetaminophen < 2 L (10-30) ug/ml Diagnostic Findings MR MRCP CLINICAL HISTORY: pancreatitis, gallstone COMPARISON STUDY: Biliary ultrasound dated 09/16/2019, CT scan dated 09/12/2019 FINDINGS: A breath-hold MRCP was performed. MIP images were acquired. There are small nonspecific T2 bright hepatic lesions. These likely represent cysts or hemangiomas. There are tiny gallstones present. The common bile duct is dilated measuring up to 1 cm. There is unexplained smooth narrowing of the distal common bile duct. The etiology of this finding is not known. This could be secondary to a benign or malignant stricture, or extrinsic compression. An ERCP is recommended in follow-up. There is no pancreatic ductal dilatation. IMPRESSION: 1. Multiple tiny gallstones 2. Unexplained smooth narrowing/stricture of the distal 2 cm of the common bile duct. 3. Dilatation (10 mm) of the common bile duct proximal to the narrowing/stricture. 4. An ERCP is recommended in follow-up. ABDOMINAL ULTRASOUND, RIGHT UPPER QUADRANT HISTORY: Right upper quadrant pain.. COMPARISON: None. FINDINGS: Pancreas: The pancreas demonstrates a normal echotexture. Liver: A 1.1 cm cyst within the left hepatic lobe. Gallbladder: Multiple small gallstones. Gallbladder wall is borderline thickened at 3 mm. No pericholecystic fluid. Negative sonographic Presley sign. CBD: Borderline dilated measuring between 4 and 7 mm. Right kidney: No hydronephrosis. IMPRESSION: 1. Cholelithiasis. There is borderline gallbladder wall thickening at 3 mm. However, there is a negative sonographic Presley sign. 2. Borderline dilated common bile duct measuring between 4 and 7 mm. (1) Pancreatitis Acute pancreatitis complication: no infection or necrosis Chronicity: acute Pancreatitis type: biliary Qualified Code(s): K85.10 - Biliary acute pancreatitis without necrosis or infection (2) Cholelithiasis Biliary obstruction: without biliary obstruction Cholecystitis presence: without cholecystitis Cholelithiasis location: gallbladder Qualified Code(s): K80.20 - Calculus of gallbladder without cholecystitis without obstruction
[2019-09-17] MEDS ORDERED: ATROPINE SULFATE 0.1 MG/ML 10ML SYR IV PRN (15:06)
[2019-09-17] MEDS ORDERED: ONDANSETRON INJ 2 MG/ML 2 ML VIAL IV PRN (15:06)
[2019-09-17] MEDS ORDERED: ePHEDrine sulfate 50 MG/ML AMP IV PRN (15:06)
[2019-09-17] MEDS ORDERED: fentaNYL citrate 100 MCG/2 ML VIAL IV PRN (15:06)
--- NOTE | 2019-09-17 15:06 | Anesthesiology Consultation ---
Date of Service September 17, 2019 Assessment & Plan ASA ASA2 Proposed Anesthesia Anesthesia Type: General Risk / Benefits Reviewed With: PT / POA / Parent / Guardian, Accepts Plan and Informed Consent Obtained History Surgery Operation Date: 09/17/19 09:00 Proposed Procedures p Endoscopic Retrograde Cholangiopancreatogram - Keyana Griffith s Endoscopic Ultrasonography Upper - Keyana Griffith Operation Date: 09/18/19 11:40 Proposed Procedures p Laparoscopic Cholecystectomy - Steve Ferreira MD Height/Weight Height: 5 ft 6 in Weight: 93.2 kg Allergies Allergy/AdvReac Type Severity Reaction Status Date / Time No Known Allergies Allergy Unverified 09/16/19 14:29 Medications Home Medications Medication Instructions Recorded Confirmed Last Taken albuterol sulfate 2 puff INHALATION UD PRN 09/12/19 09/16/19 Unknown hydrochlorothiazide 25 mg PO DAILY 09/12/19 09/16/19 09/16/19 pantoprazole 40 mg PO DAILY 09/12/19 09/16/19 09/16/19 Active Medications Generic Name Dose Route Start Last Admin Trade Name Freq PRN Reason Stop Dose Admin Lactated Ringer's 1,000 mls @ 125 mls/hr 09/16/19 19:00 09/17/19 14:14 Lr IV 10/16/19 18:59 0 mls/hr .Q8H ERIK Infusion NPO Date Last Intake of Fluids: 09/09/19 Time Last Intake of Fluids: 18:00 Date Last Intake of Solids: 09/09/19 Time Last Intake of Solids: 10:00 Past Medical History Medical History Diastolic dysfunction grade 1 diastolic dysfunction on echo in 2019 Hypertension Exercise / Class Metabolic Activity II 4-5 Yardwork/Stairs/Walk up hill Past Family History Family History Grandmother (Paternal) Breast cancer Father Cancer Past Surgical History Surgical History History of hysterectomy Past Anesthesia History No Hx of Anesthesia Complications and No Family Hx of Anesthesia Complications History of PONV No Hx of PONV and No Hx of Motion Sickness Social History Smoking Status: Never smoker Hx Alcohol Use: No Hx Substance Use: No substance use type: does not use Review of Systems denies fever/cough/ colds/ chest pain/ SOB/ JENSEN Constitutional: no fever and no chills Respiratory: no cough and no dyspnea denies JENSEN Cardiovascular: no chest pain and no dyspnea on exertion Physical Exam Vital Signs Last Vital Signs Temp 36.7 C 09/17/19 14:30 Pulse 60 09/17/19 14:30 Resp 18 09/17/19 14:30 BP 153/92 H 09/17/19 14:30 Pulse Ox 99 09/17/19 14:30 ENMT Mouth: + dentures and + poor dentition; no TMJ abnormality and no dentition abnormality Thyromental Distance: > or= 3.5 Finger Breadths Mallampati Class: II Neck neck extension not limited Respiratory normal respiratory effort; no respiratory distress Auscultation: lungs clear to auscultation bilaterally Cardiovascular Rate/Rhythm: regular rate and regular rhythm Neurologic moves all extremities Psychiatric Orientation: alert and oriented x 3 Testing Laboratory Results 09/17/19 05:41 09/17/19 05:41 PT 10.5 Seconds (9.0-12.0) 09/17/19 09:24 INR 1.0 (0.9-1.1) 09/17/19 09:24 Urine Color Dark Yellow 09/16/19 14:08 Urine Appearance Clear (Clear) 09/16/19 14:08 Urine pH 8.0 (4.5-7.5) H 09/16/19 14:08 Ur Specific [place] 1.026 (1.000-1.030) 09/16/19 14:08 Urine Protein Negative (Negative) 09/16/19 14:08 Urine Glucose (UA) Negative (Negative) 09/16/19 14:08 Urine Ketones Negative (Negative) 09/16/19 14:08 Urine Nitrite Negative (Negative) 09/16/19 14:08 Ur Leukocyte Esterase Negative (Negative) 09/16/19 14:08
[2019-09-17] MEDS ORDERED: MIDAZOLAM HCL 1 MG/ML 2ML VIAL ONE (15:20)
[2019-09-17] MEDS ORDERED: fentaNYL citrate 100 MCG/2 ML VIAL ONE (15:20)
[2019-09-17] MEDS ORDERED: INDOMETHACIN 50 MG SUPP PR ONE (15:28)
--- NOTE | 2019-09-17 15:46 | GI REPORT ---
Patient Name: Harleen Ellsworth Procedure Date: 09/17/2019 3:40 PM Date of : 1960 Admit Type: Inpatient Age: 59 Gender: Female Attending MD: Keyana Griffith DO Procedure: Upper GI endoscopy Providers: Keyana Griffith DO Referring MD: Álvaro Turk Indications: Epigastric abdominal pain Medicines: General Anesthesia Complications: No immediate complications. Estimated blood loss: Minimal. Estimated Blood Loss: Estimated blood loss was minimal. Procedure: Pre-Anesthesia Assessment: - Prior to the procedure, a History and Physical was performed, and patient medications, allergies and sensitivities were reviewed. The patient's tolerance of previous anesthesia was reviewed. - The risks and benefits of the procedure and the sedation options and risks were discussed with the patient. All questions were answered and informed consent was obtained. - Patient identification and proposed procedure were verified prior to the procedure by the physician, the nurse and the web content producer. The procedure was verified in the procedure room. - Pre-procedure physical examination revealed no contraindications to sedation. - ASA Grade Assessment: II - A patient with mild systemic disease. - After reviewing the risks and benefits, the patient was deemed in satisfactory condition to undergo the procedure. - The anesthesia plan was to use general anesthesia. - Immediately prior to administration of medications, the patient was re-assessed for adequacy to receive sedatives. - The heart rate, respiratory rate, oxygen saturations, blood pressure, adequacy of pulmonary ventilation, and response to care were monitored throughout the procedure. - The physical status of the patient was re-assessed after the procedure. After obtaining informed consent, the endoscope was passed under direct vision. Throughout the procedure, the patient's blood pressure, pulse, and oxygen saturations were monitored continuously. The Endoscope was introduced through the mouth, and advanced to the third part of duodenum. The upper GI endoscopy was accomplished without difficulty. The patient tolerated the procedure well. Findings: The examined esophagus was normal. The Z-line was regular and was found 35 cm from the incisors. The examined duodenum was normal. The entire examined stomach was normal. Impression: - Normal esophagus. - Z-line regular, 35 cm from the incisors. - Normal examined duodenum. - Normal examined duodenum. - No specimens collected. Recommendation: - Perform an upper endoscopic ultrasound (UEUS) today. MartTommy Lynch, 09/17/2019 3:46:24 PM This report has been signed electronically. Note Initiated On: 09/17/2019 3:40 PM Number of Addenda: 0 I attest to the content of the Intraoperative Record and orders documented therein, exceptions below {[id number]}
[2019-09-17] MEDS ORDERED: PROPOFOL IV EMULSION 10 MG/ML 20 ML VIAL IV ONE (15:54)
[2019-09-17] MEDS ORDERED: SUCCINYLCHOLINE CHLORIDE 20 MG/ML 10 ML VIAL IV ONE (15:54)
[2019-09-17] MEDS ORDERED: LIDOCAINE HCL 2% 2 ML VIAL/AMP(20MG/ML) INFIL ONE (15:54)
[2019-09-17] MEDS ORDERED: LABETALOL HCL IV 5 MG/ML 20ML IV ONE (15:54)
[2019-09-17] MEDS ORDERED: ONDANSETRON INJ 2 MG/ML 2 ML VIAL ONE (15:54)
--- NOTE | 2019-09-17 16:13 | Post Operative Brief Note ---
Immediate Post Op Note v1 Date of Surgery September 17, 2019 Pre & Post Diagnosis Operation Date: 09/17/19 09:00 Pre-Op Diagnosis: Cholelithiasis Post-Op Diagnosis: Cholelithiasis, No CBD stones Operation Date: 09/18/19 11:40 <No data on this case meets the specified criteria> I identified the patient and participated in the time-out.: Yes Procedure Operation Date: 09/17/19 09:00 Actual Procedures p Upper endoscopy s Endoscopic Ultrasonography Upper - Keyana Griffith Operation Date: 09/18/19 11:40 <No data on this case meets the specified criteria> Surgeon Keyana Griffith Director Trial none Estimated Blood Loss 0 Findings Consistent with Post-Op Diagnosis
--- NOTE | 2019-09-17 16:19 | GI REPORT ---
Patient Name: Harleen Ellsworth Procedure Date: 09/17/2019 3:46 PM Date of : 1960 Admit Type: Inpatient Age: 59 Gender: Female Attending MD: Keyana Griffith DO Procedure: Upper EUS Providers: Keyana Griffith DO Referring MD: Álvaro Turk Indications: Elevated liver enzymes, Acute pancreatitis, Epigastric abdominal pain Medicines: General Anesthesia Complications: No immediate complications. Estimated blood loss: Minimal. Estimated Blood Loss: Estimated blood loss was minimal. Procedure: Pre-Anesthesia Assessment: - Prior to the procedure, a History and Physical was performed, and patient medications, allergies and sensitivities were reviewed. The patient's tolerance of previous anesthesia was reviewed. - The risks and benefits of the procedure and the sedation options and risks were discussed with the patient. All questions were answered and informed consent was obtained. - Patient identification and proposed procedure were verified prior to the procedure by the physician, the nurse and the animal daycare provider. The procedure was verified in the procedure room. - Pre-procedure physical examination revealed no contraindications to sedation. - ASA Grade Assessment: II - A patient with mild systemic disease. - After reviewing the risks and benefits, the patient was deemed in satisfactory condition to undergo the procedure. - The anesthesia plan was to use general anesthesia. - Immediately prior to administration of medications, the patient was re-assessed for adequacy to receive sedatives. - The heart rate, respiratory rate, oxygen saturations, blood pressure, adequacy of pulmonary ventilation, and response to care were monitored throughout the procedure. - The physical status of the patient was re-assessed after the procedure. After obtaining informed consent, the endoscope was passed under direct vision. Throughout the procedure, the patient's blood pressure, pulse, and oxygen saturations were monitored continuously. The Endosonoscope was introduced through the mouth, and advanced to the second part of duodenum. The upper EUS was accomplished without difficulty. The patient tolerated the procedure well. Findings: ENDOSONOGRAPHIC FINDING: : There was no sign of significant endosonographic abnormality in the ampulla. No masses were identified. There was dilation in the common bile duct which measured up to 8 mm. Endosonographic imaging in the common bile duct showed no stones. Multiple stones were visualized endosonographically in the gallbladder. The stones were round. They were hyperechoic and characterized by shadowing. There was no sign of significant endosonographic abnormality in the visualized portion of the liver. Homogeneous parenchyma and no focal pathology were identified. There was no sign of significant endosonographic abnormality in the entire pancreas. The pancreatic duct measured up to 2 mm in diameter. No masses, no cysts, the pancreatic duct was thin in caliber. No lymphadenopathy seen. There was no sign of significant endosonographic abnormality in the left adrenal gland. No adrenal gland enlargement was identified. Impression: - There was no sign of significant pathology in the ampulla. - There was dilation in the common bile duct which measured up to 8 mm. - Multiple stones were visualized endosonographically in the gallbladder. - There was no evidence of significant pathology in the visualized portion of the liver. - There was no sign of significant pathology in the entire pancreas. - Endosonographic images of the left adrenal gland were unremarkable. - No specimens collected. Recommendation: - Return patient to hospital [facility] for observation. - Clear liquid diet. - Choledcystectomy as planned with Tommy Paige, 09/17/2019 4:19:22 PM This report has been signed electronically. Note Initiated On: 09/17/2019 3:46 PM Number of Addenda: 0 I attest to the content of the Intraoperative Record and orders documented therein, exceptions below {[id number]}
--- NOTE | 2019-09-17 16:41 | Anesthesiology Progress Note ---
Date of Service September 17, 2019 Anesthesia Post Procedure Vital Signs Vital Signs: Temp Pulse Pulse Pulse Pulse Resp BP 09/17/19 16:40 36.4 C L 58 L 16 09/17/19 16:30 64 14 09/17/19 16:20 66 14 09/17/19 16:11 36.1 C L 67 16 09/17/19 14:30 36.7 C 60 59 L 18 09/17/19 07:48 36.7 C 65 18 139/81 09/17/19 03:17 36.5 C 72 16 135/77 09/16/19 22:52 37.1 C 65 16 148/81 H 09/16/19 20:15 62 09/16/19 18:05 36.6 C 64 18 09/16/19 17:36 65 18 09/16/19 16:43 70 BP Pulse Ox 09/17/19 16:40 141/89 H 97 09/17/19 16:30 141/88 H 96 09/17/19 16:20 145/83 H 100 09/17/19 16:11 157/90 H 100 09/17/19 14:30 153/92 H 99 09/17/19 07:48 96 09/17/19 03:17 95 09/16/19 22:52 98 09/16/19 20:15 148/85 H 09/16/19 18:05 170/85 H 97 09/16/19 17:36 160/95 H 98 09/16/19 16:43 97 Pain Intensity Bilateral Abdomen: Pain Intensity: 0 Transfer of Care Handoff Completed per policy Notes Mental Status: alert / awake / arousable and participated in evaluation Patient Amnestic to Procedure: Yes Nausea / Vomiting: adequately controlled Pain: adequately controlled Airway Patency, RR, SpO2: stable & adequate BP & HR: stable & adequate Hydration State: stable & adequate Anesthetic Complications: no major complications apparent and Pt Satisfied with anesthetic care
--- NOTE | 2019-09-17 17:34 | Hospitalist Progress Note ---
Date of Service September 17, 2019 Assessment & Plan (1) Pancreatitis: Gallstone pancreatitis N.p.o./IV fluid and IV pain medication Appreciate GI and surgery input with recommendation Status post EUS today 09/17/2019 Will have laparoscopic cholecystectomy tomorrow 09/18/2019 Patient remains stable (2) Elevated liver function tests: Secondary to gallstone cholecystitis (3) Cholelithiasis: Pt is 59 y/o F with PMH HTN, diastolic dysfunction presented to ER with c/o epigastric pain started last night. C/O epigastric pain that is sharp and radiates to back that started at 1am and lasted until noon today. Associated with chills when has the pain and vomiting. This has been intermittent over the past month. No ETOH use. As above (4) Hypertension: -Hold HCTZ at this time (5) Diastolic dysfunction: H/O echo in 2019 with grade 1 diastolic dysfunction with EF: 60-65% Appears Euvolemic at this time DVT Prophylaxis -SCDs Full Code Follows with Dr Keyon Patel for routine care Admission and Anticipated Discharge Date Admission Date: September 16, 2019 Subjective The patient was seen and examined in the medical floor History 39-year-old obese female with past medical history of hypertension, d iastolic dysfunction presented to ER with epigastric pain that was going towards the back and left shoulder Noted to have constant pancreatitis He is a status post EUS done today Has been complaining some cough but denies any other significant abdominal pain Review of Systems Review of Systems: All systems reviewed and are unremarkable except as noted below Respiratory: + cough Gastrointestinal: no abdominal pain and no nausea Physical Exam Physical Exam: Lying in bed comfortably Constitutional: well developed, well nourished, + acute distress (Cough without shortness of breath) and + obese; not ill appearing Eyes: PERRL, conjunctivae normal, anicteric sclerae ENMT: external ear and nose normal, oropharynx normal Neck: trachea midline, no thyromegaly Respiratory: normal respiratory effort; no respiratory distress Auscultation: lungs clear to auscultation bilaterally Cardiovascular: Rate/Rhythm: regular rate and regular rhythm Heart Sounds: no murmur Gastrointestinal (Abdomen): Inspection/Auscultation: abdomen normal to inspection and normal bowel sounds Percussion/Palpation: + abdomen tender (Minimally tender epigastrium without guarding and no rigidity) and abdomen soft Musculoskeletal: No acute arthritis involving any joints Neurologic: moves all extremities; no focal motor deficits Results & Data Results & Data ([facility]) Vital Signs (Past 12 Hours) Vital Signs Temp Pulse Pulse Pulse Resp BP BP 09/17/19 17:11 36.7 C 74 16 139/85 09/17/19 16:40 36.4 C L 58 L 16 141/89 H 09/17/19 16:30 64 14 141/88 H 09/17/19 16:20 66 14 145/83 H 09/17/19 16:11 36.1 C L 67 16 157/90 H 09/17/19 14:30 36.7 C 60 59 L 18 153/92 H 09/17/19 07:48 36.7 C 65 18 139/81 Pulse Ox 09/17/19 17:11 91 09/17/19 16:40 97 09/17/19 16:30 96 09/17/19 16:20 100 09/17/19 16:11 100 09/17/19 14:30 99 09/17/19 07:48 96 Laboratory Results Short CBC 09/17/19 Range/Units 05:41 WBC 4.88 (4.8-10.8) K/uL Hgb 12.4 (12.0-16.0) g/dL Hct 37.9 (37-47) % Plt Count 265 (130-400) K/uL BMP 09/17/19 05:41 Sodium 142 Potassium 3.4 L Chloride 108 H Carbon Dioxide 30 BUN 10 D Creatinine 0.71 Glucose 92 Calcium 8.9 Liver Function 09/17/19 Range/Units 05:41 Total Bilirubin 0.2 D (0.2-1) mg/dl Direct Bilirubin < 0.1 (0-0.2) mg/dl AST 178 H (15-37) U/L ALT 244 H (12-78) U/L Alkaline Phosphatase 102 (45-117) U/L Albumin 2.9 L (3.4-5.0) gm/dl Medications Administered Current Inpatient Medications Lactated Ringer's (Lr) 1,000 mls @ 125 mls/hr IV .Q8H ERIK Stop: 10/16/19 18:59 Last Infusion: 09/17/19 17:02 Dose: 125 mls/hr Documented by: Morphine Sulfate (Morphine Sulfate) 2 mg IV Q4H PRN PRN Reason: Pain Stop: 09/30/19 18:04 Ondansetron HCl (Zofran) 4 mg IV Q6H PRN PRN Reason: Nausea Stop: 10/16/19 18:04 (1) Pancreatitis Acute pancreatitis complication: no infection or necrosis Chronicity: acute Pancreatitis type: biliary Qualified Code(s): K85.10 - Biliary acute pancreatitis without necrosis or infection (2) Cholelithiasis Biliary obstruction: without biliary obstruction Cholecystitis presence: without cholecystitis Cholelithiasis location: gallbladder Qualified Code(s): K80.20 - Calculus of gallbladder without cholecystitis without obstruction
[2019-09-18] MEDS: LACTATED RINGER'S 1,000 ML IV SCH ×4 (04:23→20:13)
[2019-09-18 08:22] LABS: Basophils # (auto) 0.03 K/uL (0-0.2); Basophils % (auto) 0.5 %; Eosinophils # (auto) 0.18 K/uL (0-0.5); Eosinophils % (auto) 2.7 %; Hematocrit (blood only) 39.3 % (37-47); Hemoglobin 12.8 g/dL (12.0-16.0); Immature Granulocytes # (auto) 0.01 K/uL (0.00-0.02); Immature Granulocytes % (auto) 0.2 %; Lymphocytes % (auto) 34.7 %; Mean Corpuscular Hemoglobin 29.1 pg (25-34); Mean Corpuscular Hgb Conc 32.6 g/dL (32-36); Mean Corpuscular Volume 89.3 fL (80-100); Mean Platelet Volume 9.6 fL (7.4-10.4); Monocytes # (auto) 0.35 K/uL (0.11-0.59); Monocytes % (auto) 5.3 %; Neutrophils # (auto) 3.76 K/uL (1.4-6.5); Neutrophils % (auto) 56.6 %; Platelet Count 312 K/uL (130-400); RDW Coefficient of Variation 14.3 % (11.5-14.5); RDW Standard Deviation 47.1 fL (36.4-46.3); White Blood Count 6.63 K/uL (4.8-10.8)
[2019-09-18 08:57] LABS: Albumin Globulin Ratio 0.8 (0.9-2); Albumin Level 3.2 gm/dl (3.4-5.0); BUN Creatinine Ratio 9.7 (10-20); Bilirubin,Total 0.5 mg/dl (0.2-1); Calcium 9.3 mg/dl (8.5-10.1); Creatinine Clr Calc Pharmacy 91.5 ml/min; Est GFR (African American) 97.8; Est GFR (Non-African American) 84.4; Magnesium 2.3 mg/dl (1.8-2.4); Potassium 3.5 mmol/L (3.5-5.1); Total Protein 7.2 gm/dl (6.4-8.2)
[2019-09-18] MEDS ORDERED: ePHEDrine sulfate 50 MG/ML AMP IV PRN (09:57)
[2019-09-18] MEDS ORDERED: ATROPINE SULFATE 0.1 MG/ML 10ML SYR IV PRN (09:57)
[2019-09-18] MEDS ORDERED: LABETALOL HCL IV 5 MG/ML 20ML IV PRN (09:57)
[2019-09-18] MEDS ORDERED: MEPERIDINE HCL 25 MG/ML CARP/VIAL IV PRN (09:57)
[2019-09-18] MEDS ORDERED: HYDROmorphone INJ 1 MG/ML SYRINGE IV PRN (09:57)
[2019-09-18] MEDS ORDERED: PHENYLEPHRINE 100MCG/ML 5ML SYR IV PRN (09:57)
[2019-09-18] MEDS ORDERED: ONDANSETRON INJ 2 MG/ML 2 ML VIAL IV PRN (09:59)
--- NOTE | 2019-09-18 10:01 | Anesthesiology Consultation ---
Date of Service September 18, 2019 Covid 19 negative on 09/17/19. She had an ERCP yesterday which she tolerated well. Assessment & Plan (1) Encounter for pre-operative examination: Chart Review Chart Review: Acceptable Risk for Surgery and Patient NOT seen in Pre Admission Testing Consults Requested none History Surgery Operation Date: 09/17/19 09:00 Proposed Procedures p Endoscopic Retrograde Cholangiopancreatogram - Keyana Griffith s Endoscopic Ultrasonography Upper - Keyana Griffith Operation Date: 09/18/19 11:40 Proposed Procedures p Laparoscopic Cholecystectomy - Steve Ferreira MD Height/Weight Height: 5 ft 6 in Weight: 93.2 kg Allergies Allergy/AdvReac Type Severity Reaction Status Date / Time No Known Allergies Allergy Unverified 09/16/19 14:29 Medications Home Medications Medication Instructions Recorded Confirmed Last Taken albuterol sulfate 2 puff INHALATION UD PRN 09/12/19 09/16/19 Unknown hydrochlorothiazide 25 mg PO DAILY 09/12/19 09/16/19 09/16/19 pantoprazole 40 mg PO DAILY 09/12/19 09/16/19 09/16/19 Active Medications Generic Name Dose Route Start Last Admin Trade Name Freq PRN Reason Stop Dose Admin Lactated Ringer's 1,000 mls @ 125 mls/hr 09/16/19 19:00 09/18/19 09:32 Lr IV 10/16/19 18:59 0 mls/hr .Q8H ERIK Infusion NPO Date Last Intake of Fluids: 09/17/19 Time Last Intake of Fluids: 23:59 Date Last Intake of Solids: 09/09/19 Time Last Intake of Solids: 10:00 Past Medical History Medical History (Updated 09/18/19 @ 10:07 by Isaak De La Rosa MD) Diastolic dysfunction grade 1 diastolic dysfunction on echo in 2019 Hypertension Past Family History Family History Grandmother (Paternal) Breast cancer Father Cancer Past Surgical History Surgical History (Updated 09/18/19 @ 10:06 by Isaak De La Rosa MD) History of ERCP Grade 1 view Mac 3 blade History of hysterectomy Social History Smoking Status: Never smoker Hx Alcohol Use: No Hx Substance Use: No substance use type: does not use Physical Exam Vital Signs Last Vital Signs Temp 37.4 C 09/18/19 07:46 Pulse 67 09/18/19 07:46 Resp 18 09/18/19 07:46 BP 122/75 09/18/19 07:46 Pulse Ox 93 09/18/19 07:46 Testing Laboratory Results 09/18/19 08:07 09/18/19 08:07 PT 10.5 Seconds (9.0-12.0) 09/17/19 09:24 INR 1.0 (0.9-1.1) 09/17/19 09:24 Urine Color Dark Yellow 09/16/19 14:08 Urine Appearance Clear (Clear) 09/16/19 14:08 Urine pH 8.0 (4.5-7.5) H 09/16/19 14:08 Ur Specific [place] 1.026 (1.000-1.030) 09/16/19 14:08 Urine Protein Negative (Negative) 09/16/19 14:08 Urine Glucose (UA) Negative (Negative) 09/16/19 14:08 Urine Ketones Negative (Negative) 09/16/19 14:08 Urine Nitrite Negative (Negative) 09/16/19 14:08 Ur Leukocyte Esterase Negative (Negative) 09/16/19 14:08 Electrocardiogram Date: 09/16/19 Findings: + NSR @ (72) and + NSST changes
[2019-09-18] MEDS ORDERED: MIDAZOLAM HCL 1 MG/ML 2ML VIAL ONE (10:21)
[2019-09-18] MEDS ORDERED: fentaNYL citrate 100 MCG/2 ML VIAL ONE ×2 (10:21→12:17)
[2019-09-18] MEDS ORDERED: CEFAZOLIN 2000MG 2,000 MG/15 ML SYR IV ONE (10:28)
--- NOTE | 2019-09-18 10:28 | History & Physical Bridge Note ---
Date of Service September 18, 2019 History & Physical Bridge Note I have examined the patient, reviewed the History & Physical and in the interval since the performance of the History & Physical I have noted the following changes of clinical significance: no changes noted Supervising Physician Co-Signing Physician Notes I saw and evaluated the patient. She presented with abdominal pain and was found to have significant elevation of her liver enzymes in addition to mild pancreatitis. Presentation is very suggestive of gallstone pancreatitis. Unfortunately her MRI showed indistinct changes at the distal duct. Physical No obvious distress, no scleral icterus Mild right-sided abdominal tenderness Impressoin: Patient presenting with signs and symptoms suggestive of gallstone pancreatitis. Given the patient's presentation and negative imaging we will proceed with upper endoscopy and endoscopic ultrasound this afternoon. If a common bile duct stone is found we will then proceed with ERCP. We have discussed the risks and benefits of the procedures to include bleeding, infection, perforation, pain, pancreatitis and failed biliary cannulation in the event of ERCP.
[2019-09-18] MEDS ORDERED: CEFAZOLIN 2,000 MG/15 ML IV PUSH IV ONE (10:30)
[2019-09-18] MEDS ORDERED: LIDOCAINE HCL 2% 2 ML VIAL/AMP(20MG/ML) INFIL ONE (10:35)
[2019-09-18] MEDS ORDERED: PROPOFOL IV EMULSION 10 MG/ML 20 ML VIAL IV ONE (10:35)
[2019-09-18] MEDS ORDERED: BACITRACIN OINT 15 GM TUBE ONE (10:41)
[2019-09-18] MEDS ORDERED: LIDOCAINE HCL 1% 20 ML VIAL ONE (10:41)
[2019-09-18] MEDS ORDERED: BUPIVACAINE 0.5 % 5 MG/1 ML MPF 30ML VIAL ONE (10:41)
[2019-09-18] MEDS ORDERED: SUGAMMADEX SODIUM 200 MG/2 ML VIAL IV ONE (12:00)
--- NOTE | 2019-09-18 12:04 | Post Operative Brief Note ---
Immediate Post Op Note v1 Date of Surgery September 18, 2019 Pre & Post Diagnosis Operation Date: 09/17/19 09:00 Pre-Op Diagnosis: Cholelithiasis, acute cholecystitis Post-Op Diagnosis: Cholelithiasis, acute cholecystitis Operation Date: 09/18/19 11:40 Pre-Op Diagnosis: Gallstone pancreatitis Post-Op Diagnosis: Gallstone pancreatitis I identified the patient and participated in the time-out.: Yes Procedure Operation Date: 09/17/19 09:00 Actual Procedures p Endoscopic Retrograde Cholangiopancreatogram - Keyana Griffith s Endoscopic Ultrasonography Upper - Keyana Grfifith Operation Date: 09/18/19 11:40 Actual Procedures p Laparoscopic Cholecystectomy(Not Applicable) - Steve Ferreira MD Surgeon Steve Ferreira MD 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
[2019-09-18] MEDS ORDERED: ONDANSETRON INJ 2 MG/ML 2 ML VIAL ONE (12:13)
[2019-09-18] MEDS ORDERED: DEXAMETHASONE SOD INJ 4 MG/ML VIAL ONE (12:13)
[2019-09-18] MEDS ORDERED: ROCURONIUM BROMIDE 10 MG/ML 5 ML VIAL IV ONE (12:13)
--- NOTE | 2019-09-18 12:38 | Operative Report (OR) ---
DATE OF OPERATION: 09/18/2019 PREOPERATIVE DIAGNOSES: Acute cholecystitis, cholelithiasis. POSTOPERATIVE DIAGNOSES: Acute cholecystitis, cholelithiasis. OPERATION: Laparoscopic cholecystectomy. SURGEON: Steve Ferreira MD. MARINE MACHINIST: Giselle Price PA-C. ANESTHESIA: General. ESTIMATED BLOOD LOSS: About 20 mL. FINDINGS: Acute cholecystitis with gallstone. COMPLICATIONS: None. INDICATIONS FOR THE PROCEDURE: This is a 59-year-old female who was admitted to the hospital for acute abdominal pain and patient is post ERCP. Also, the patient is diagnosed with acute cholecystitis, cholelithiasis and I recommended to do laparoscopic cholecystectomy, possible open, possible cholangiogram. I did talk to the patient about the benefit, risk, alternate procedure. I indicated the risks may include but not limited to such as bleeding, infection, injury to common bile duct, bile leak. The patient understands. She signed informed consent and I answered all questions. DETAILS OF PROCEDURE: We brought the patient to the OR, put the patient in the supine position. The patient received SCD on bilateral legs to prevent DVT. Also, patient received 2 g of Ancef IV for prophylactic antibiotics. The patient received general anesthesia without difficulties. Abdomen was prepped and draped in routine sterile fashion. After timeout, I injected local anesthesia by using 1% lidocaine mixed with 0.5% Marcaine just above the umbilicus. Then, I made a small incision just above the umbilicus, opened fascia and opened peritoneum under direct vision, put a Ramon trocar in, connected to CO2 to create pneumoperitoneum, flow rate is 6 liters per minute, pressure not more than 14 mmHg. Once we got a nice pneumoperitoneum, we put the camera in, looked around the abdomen. Normal finding on the liver. However, the gallbladder showed significant inflammation, gallbladder wall thickening, edema, confirmed the diagnosis of acute cholecystitis. Then, we put another two 5 mm trocars on the right upper quadrant, one 11 trocar on the epigastric area. Once all trocars in, we put a grasper in to hold the base of gallbladder, put in the direction to the diaphragm, another grasper to hold the pouch of gallbladder, put a lateral to explore the triangle of Calot. Cystic duct was identified and mobilized. Then, I put two 10 mm metal clips on the proximal cystic duct, one on the distal cystic duct and used a scissor for transection of cystic duct. Rechecked, no bile leak, no active bleeding. The cystic artery was identified and mobilized. Then I put two 5 mm metal clips on the proximal cystic artery, one on the distal cystic artery, then used a scissor for transection of cystic artery. Rechecked, no active bleeding. Then we used the Bovie to take down gallbladder from the liver bed. Rechecked again, no active bleeding, no bile leak from the liver bed. Then we removed gallbladder through the catch bag. Then, we reinserted the Ramon trocar in, connected to CO2 to create pneumoperitoneum, again looked around the abdomen, no active bleeding, no bile leak from the liver bed. Then, we removed all trocars under direct vision. No active bleeding from the trocar sites. Pneumoperitoneum was released. Then I closed the umbilical incision, fascial layer by using #1 Vicryl [id number] x2, closed subcutaneous layer by using 2-0 Vicryl interruptedly, closed skin by using 4-0 Vicryl continuous running, closed the epigastric area 11 trocar site fascial layer by using #1 Vicryl [id number] x2, subcutaneous layer by using 2-0 Vicryl interruptedly, closed skin by using 4-0 Vicryl interruptedly, closed another two 5 mm trocar site skin only by using 4-0 Vicryl and then we put the dressing on. The patient tolerated the procedure well. All instrument, needle and sponge count were correct x2 at the end of the case. The patient was transferred to recovery room in stable condition. The specimen was sent to pathology. I attest to the content of the Intraoperative Record and any orders documented therein. Any exception s are noted below.
--- NOTE | 2019-09-18 12:39 | Anesthesiology Progress Note ---
Date of Service September 18, 2019 Anesthesia Post Procedure Vital Signs Vital Signs: Temp Pulse Pulse Pulse Resp BP Pulse Ox 09/18/19 12:35 61 12 162/81 H 100 09/18/19 12:28 37.2 C 65 10 L 155/72 H 100 09/18/19 10:06 36.8 C 65 16 155/77 H 95 09/18/19 07:46 37.4 C 67 18 122/75 93 09/18/19 03:58 37.2 C 67 16 117/73 94 09/17/19 22:55 37.1 C 63 16 144/78 H 97 09/17/19 17:11 36.7 C 74 16 139/85 91 09/17/19 16:40 36.4 C L 58 L 16 141/89 H 97 09/17/19 16:30 64 14 141/88 H 96 09/17/19 16:20 66 14 145/83 H 100 09/17/19 16:11 36.1 C L 67 16 157/90 H 100 09/17/19 14:30 36.7 C 60 59 L 18 153/92 H 99 Pain Intensity Bilateral Abdomen: Pain Intensity: 0 Transfer of Care Handoff Completed per policy Notes Mental Status: alert / awake / arousable Patient Amnestic to Procedure: Yes Nausea / Vomiting: adequately controlled Pain: adequately controlled Airway Patency, RR, SpO2: stable & adequate BP & HR: stable & adequate Hydration State: stable & adequate Anesthetic Complications: no major complications apparent and Pt Satisfied with anesthetic care
[2019-09-18] MEDS: fentaNYL citrate 100 MCG/2 ML VIAL IV PRN ×2 (12:47→12:55)
[2019-09-18] MEDS ORDERED: OXYCODONE/ACETAMINOPHEN 5mg/325mg TAB PO PRN (13:36)
[2019-09-18] MEDS ORDERED: ALBUTEROL HFA 8 GM INHALER INH PRN (13:36)
[2019-09-18 13:39] LABS: Hepatitis A Antibody IgM NON-REACTIVE (NON-REACTIVE); Hepatitis B Core Antibody IgM NON-REACTIVE (NON-REACTIVE)
[2019-09-18] MEDS ORDERED: ACETAMINOPHEN 325 MG TAB PO PRN (13:47)
--- NOTE | 2019-09-18 16:59 | Hospitalist Progress Note ---
Date of Service September 18, 2019 Assessment & Plan (1) Pancreatitis: Gallstone pancreatitis N.p.o./IV fluid and IV pain medication Appreciate GI and surgery input with recommendation Status post EUS today 09/17/2019 Laparoscopic cholecystectomy Minimal pain in the abdomen otherwise medically stable (2) Elevated liver function tests: Secondary to gallstone cholecystitis (3) Cholelithiasis: Pt is 59 y/o F with PMH HTN, diastolic dysfunction presented to ER with c/o epigastric pain started last night. C/O epigastric pain that is sharp and radiates to back that started at 1am and lasted until noon today. Associated with chills when has the pain and vomiting. This has been intermittent over the past month. No ETOH use. Status post laparoscopic cholecystectomy As above (4) Hypertension: -Hold HCTZ at this time And hydrochlorothiazide on discharge (5) Diastolic dysfunction: H/O echo in 2019 with grade 1 diastolic dysfunction with EF: 60-65% Appears Euvolemic at this time DVT Prophylaxis -SCDs Full Code Follows with Dr Keyon Patel for routine care Likely discharge tomorrow Admission and Anticipated Discharge Date Admission Date: September 16, 2019 Subjective The patient was seen and examined in the medical floor History 39-year-old obese female with past medical history of hypertension, diastolic dysfunction presented to ER with epigastric pain that was going towards the back and left shoulder Noted to have constant pancreatitis He is a status post EUS done today Has been complaining some cough but denies any other significant abdominal pain 09/18/2019 The patient is seen and examined in the medical floor She is a status post laparoscopic cholecystectomy Denies any significant symptoms except some discomfort in the abdomen Review of Systems Review of Systems: All systems reviewed and are unremarkable except as noted below Respiratory: no cough and no dyspnea Gastrointestinal: + abdominal pain (Minimal right upper quadrant) Physical Exam Physical Exam: Lying in bed comfortably Constitutional: well developed, well nourished, + acute distress (Cough without shortness of breath) and + obese; not ill appearing Eyes: PERRL, conjunctivae normal, anicteric sclerae ENMT: external ear and nose normal, oropharynx normal Neck: trachea midline, no thyromegaly Respiratory: normal respiratory effort; no respiratory distress Auscultation: lungs clear to auscultation bilaterally Cardiovascular: Rate/Rhythm: regular rate and regular rhythm Heart Sounds: no murmur Gastrointestinal (Abdomen): Inspection/Auscultation: + abdomen distended (Minimally distended) and normal bowel sounds Percussion/Palpation: + abdomen tender (Mildly tender) and abdomen soft Neurologic: moves all extremities; no focal motor deficits Lymphatic: no cervical or axillary lymphadenopathy Results & Data Results & Data ([facility]) Vital Signs (Past 12 Hours) Vital Signs Temp Pulse Pulse Pulse Resp BP Pulse Ox 09/18/19 16:05 36.7 C 74 16 137/82 94 09/18/19 14:17 68 18 138/72 95 09/18/19 13:35 37.3 C 67 16 142/84 H 96 09/18/19 13:25 37.6 C H 69 20 145/70 H 96 09/18/19 13:15 37.6 C H 62 17 146/70 H 93 09/18/19 13:05 37.6 C H 50 L 14 139/75 96 09/18/19 12:55 57 L 10 L 153/78 H 92 09/18/19 12:45 60 12 165/89 H 95 09/18/19 12:35 61 12 162/81 H 100 09/18/19 12:28 37.2 C 65 10 L 155/72 H 100 09/18/19 10:06 36.8 C 65 16 155/77 H 95 09/18/19 07:46 37.4 C 67 18 122/75 93 Laboratory Results Short CBC 09/18/19 Range/Units 08:07 WBC 6.63 (4.8-10.8) K/uL Hgb 12.8 (12.0-16.0) g/dL Hct 39.3 (37-47) % Plt Count 312 (130-400) K/uL BMP 09/18/19 08:07 Sodium 141 Potassium 3.5 Chloride 105 Carbon Dioxide 29 BUN 8 Creatinine 0.78 Glucose 97 Calcium 9.3 Liver Function 09/18/19 Range/Units 08:07 Total Bilirubin 0.5 (0.2-1) mg/dl AST 90 H (15-37) U/L ALT 170 H (12-78) U/L Alkaline Phosphatase 99 (45-117) U/L Albumin 3.2 L (3.4-5.0) gm/dl Medications Administered Current Inpatient Medications Acetaminophen (Tylenol) 650 mg PO Q4H PRN PRN Reason: Pain Stop: 10/18/19 13:46 Albuterol (Ventolin Hfa) 2 puffs INH UD PRN PRN Reason: Shortness Of Breath Or Wheezing Stop: 10/18/19 13:35 Hydrochlorothiazide (Hctz) 25 mg PO DAILY ERIK Stop: 10/19/19 08:59 Lactated Ringer's (Lr) 1,000 mls @ 80 mls/hr IV .[id number] ERIK Stop: 10/18/19 13:35 Last Admin: 09/18/19 14:44 Dose: 80 mls/hr Documented by: Morphine Sulfate (Morphine Sulfate) 2 mg IV Q4H PRN PRN Reason: Pain Stop: 09/30/19 18:04 Ondansetron HCl (Zofran) 4 mg IV Q6H PRN PRN Reason: Nausea Stop: 10/16/19 18:04 Oxycodone/Acetaminophen (Percocet 5mg/325mg) 1 tab PO Q4H PRN PRN Reason: Pain Stop: 10/02/19 13:35 Pantoprazole Sodium (Protonix) 40 mg PO DAILY [facility] Stop: 10/19/19 08:59 (1) Pancreatitis Acute pancreatitis complication: no infection or necrosis Chronicity: acute Pancreatitis type: biliary Qualified Code(s): K85.10 - Biliary acute pancreatitis without necrosis or infection (2) Cholelithiasis Biliary obstruction: without biliary obstruction Cholecystitis presence: wi thout cholecystitis Cholelithiasis location: gallbladder Qualified Code(s): K80.20 - Calculus of gallbladder without cholecystitis without obstruction
[2019-09-19 07:21] LABS: Basophils # (auto) 0.01 K/uL (0-0.2); Basophils % (auto) 0.1 %; Eosinophils # (auto) 0.04 K/uL (0-0.5); Eosinophils % (auto) 0.6 %; Hematocrit (blood only) 37.9 % (37-47); Immature Granulocytes # (auto) 0.01 K/uL (0.00-0.02); Immature Granulocytes % (auto) 0.1 %; Lymphocytes # (auto) 2.35 K/uL (1.2-3.4); Lymphocytes % (auto) 33.8 %; Mean Corpuscular Hemoglobin 28.2 pg (25-34); Mean Corpuscular Hgb Conc 31.7 g/dL (32-36); Mean Platelet Volume 9.6 fL (7.4-10.4); Monocytes # (auto) 0.46 K/uL (0.11-0.59); Monocytes % (auto) 6.6 %; Neutrophils # (auto) 4.09 K/uL (1.4-6.5); Neutrophils % (auto) 58.8 %; Platelet Count 277 K/uL (130-400); RDW Coefficient of Variation 14.1 % (11.5-14.5); RDW Standard Deviation 45.8 fL (36.4-46.3); Red Blood Count 4.26 M/uL (4.2-5.4); White Blood Count 6.96 K/uL (4.8-10.8)
[2019-09-19 07:57] LABS: Albumin Level 3.1 gm/dl (3.4-5.0); Calcium 9.1 mg/dl (8.5-10.1); Creatinine Clr Calc Pharmacy 95.2 ml/min; Est GFR (African American) 102.6; Est GFR (Non-African American) 88.5
[2019-09-19 07:59] LABS: Albumin Globulin Ratio 0.8 (0.9-2); Bilirubin,Total 0.5 mg/dl (0.2-1); Globulin 3.8 gm/dl (2.5-4.0); Total Protein 6.9 gm/dl (6.4-8.2)
[2019-09-19 08:31] LABS: Potassium 3.7 mmol/L (3.5-5.1)
[2019-09-19] MEDS: LACTATED RINGER'S 1,000 ML IV SCH (08:44)
[2019-09-19] MEDS ORDERED: hydroCHLOROthiazide 25 MG TAB PO SCH (09:00)
[2019-09-19] MEDS ORDERED: PANTOprazole 40 MG TAB PO SCH (09:00)
--- NOTE | 2019-09-19 11:35 | Surgery Progress Note ---
Date of Service September 19, 2019 Assessment & Plan (1) Cholelithiasis: POD # 1 s/p laparoscopic cholecystectomy, POD # 2 s/p EGD/EUS -avss - minimal postop pain, preop pain resolved - t. bili wnl, LFTS continue to improve Plan: Okay from surgical standpoint for discharge discharge instructions reviewed f/u surgical office in 2 weeks (2) Pancreatitis: Resolved Dr. Ferreira has seen patient, agrees with above. Subjective feeling good minimal pain, has not required any pain medication not even Tylenol tolerated clear liquids, no n/v preop pain resolved Physical Exam Constitutional: WD/WN, vitals as above no acute distress Gastrointestinal (Abdomen): Inspection/Auscultation: abdomen normal to inspection; abdomen not distended Percussion/Palpation: abdomen soft; abdomen nontender, no guarding and abdomen not rigid Skin: no rashes, warm and dry + incision (covered with dry dressings) Psychiatric: A+Ox3, euthymic affect Results & Data Vital Signs (Past 12 Hours) Vital Signs Temp Pulse Resp BP Pulse Ox 09/19/19 07:36 37.2 C 68 18 141/84 H 92 09/19/19 02:59 37 C 68 16 142/78 H 92 09/18/19 23:45 37.4 C 61 16 119/69 97 Laboratory Results 09/19/19 09/19/19 09/19/19 Range/Units 08:03 07:10 07:10 WBC 6.96 (4.8-10.8) K/uL RBC 4.26 (4.2-5.4) M/uL Hgb 12.0 (12.0-16.0) g/dL Hct 37.9 (37-47) % MCV 89.0 (80-100) fL MCH 28.2 (25-34) pg MCHC 31.7 L (32-36) g/dL RDW Std Deviation 45.8 (36.4-46.3) fL RDW Coeff of Marco A 14.1 (11.5-14.5) % Plt Count 277 (130-400) K/uL MPV 9.6 (7.4-10.4) fL Immature Gran % (Auto) 0.1 % Neut % (Auto) 58.8 % Lymph % (Auto) 33.8 % [place] % (Auto) 6.6 % Eos % (Auto) 0.6 % Baso % (Auto) 0.1 % Neut # (Auto) 4.09 (1.4-6.5) K/uL Lymph # (Auto) 2.35 (1.2-3.4) K/uL [place] # (Auto) 0.46 (0.11-0.59) K/uL Eos # (Auto) 0.04 (0-0.5) K/uL Baso # (Auto) 0.01 (0-0.2) K/uL Immature Gran # (Auto) 0.01 (0.00-0.02) K/uL Sodium 140 (136-145) mmol/L Potassium 3.7 (3.5-5.1) mmol/L Chloride 105 (98-107) mmol/L Carbon Dioxide 30 (21-32) mmol/L Anion Gap 5.0 (3-11) BUN 5 L (7-18) mg/dl Creatinine 0.75 (0.6-1.2) mg/dl Est Cr Clr Drug Dosing 95.2 ml/min Est GFR ( Amer) 102.6 Est GFR (Non-Af Amer) 88.5 BUN/Creatinine Ratio 7.0 L (10-20) Glucose 94 (70-99) mg/dl Calcium 9.1 (8.5-10.1) mg/dl Total Bilirubin 0.5 (0.2-1) mg/dl AST 47 H (15-37) U/L ALT 109 H (12-78) U/L Alkaline Phosphatase 96 (45-117) U/L Total Protein 6.9 (6.4-8.2) gm/dl Albumin 3.1 L (3.4-5.0) gm/dl Globulin 3.8 (2.5-4.0) gm/dl Albumin/Globulin Ratio 0.8 L (0.9-2) Specimen Hemolysis Hepatitis A IgM Ab (NON-REACTIVE) Hep B Core IgM Ab (NON-REACTIVE) 09/16/19 Range/Units 19:33 WBC (4.8-10.8) K/uL RBC (4.2-5.4) M/uL Hgb (12.0-16.0) g/dL Hct (37-47) % MCV (80-100) fL MCH (25-34) pg MCHC (32-36) g/dL RDW Std Deviation (36.4-46.3) fL RDW Coeff of Marco A (11.5-14.5) % Plt Count (130-400) K/uL MPV (7.4-10.4) fL Immature Gran % (Auto) % Neut % (Auto) % Lymph % (Auto) % [place] % (Auto) % Eos % (Auto) % Baso % (Auto) % Neut # (Auto) (1.4-6.5) K/uL Lymph # (Auto) (1.2-3.4) K/uL [place] # (Auto) (0.11-0.59) K/uL Eos # (Auto) (0-0.5) K/uL Baso # (Auto) (0-0.2) K/uL Immature Gran # (Auto) (0.00-0.02) K/uL Sodium (136-145) mmol/L Potassium (3.5-5.1) mmol/L Chloride (98-107) mmol/L Carbon Dioxide (21-32) mmol/L Anion Gap (3-11) BUN (7-18) mg/dl Creatinine (0.6-1.2) mg/dl Est Cr Clr Drug Dosing ml/min Est GFR ( Amer) Est GFR (Non-Af Amer) BUN/Creatinine Ratio (10-20) Glucose (70-99) mg/dl Calcium (8.5-10.1) mg/dl Total Bilirubin (0.2-1) mg/dl AST (15-37) U/L ALT (12-78) U/L Alkaline Phosphatase (45-117) U/L Total Protein (6.4-8.2) gm/dl Albumin (3.4-5.0) gm/dl Globulin (2.5-4.0) gm/dl Albumin/Globulin Ratio (0.9-2) Specimen Hemolysis Hepatitis A IgM Ab NON-REACTIVE (NON-REACTIVE) Hep B Core IgM Ab NON-REACTIVE (NON-REACTIVE) (1) Pancreatitis Acute pancreatitis complication: no infection or necrosis Chronicity: acute Pancreatitis type: biliary Qualified Code(s): K85.10 - Biliary acute pancreatitis without necrosis or infection (2) Cholelithiasis Biliary obstruction: without biliary obstruction Cholecystitis presence: without cholecystitis Cholelithiasis location: gallbladder Qualified Code(s): K80.20 - Calculus of gallbladder without cholecystitis without obstruction
--- NOTE | 2019-09-19 12:32 | Hospitalist Progress Note ---
Date of Service September 19, 2019 Assessment & Plan (1) Pancreatitis: Gallstone pancreatitis N.p.o./IV fluid and IV pain medication Appreciate GI and surgery input with recommendation Status post EUS today 09/17/2019 Laparoscopic cholecystectomy Minimal pain in the abdomen otherwise medically stable Has been tolerating regular diet without any symptoms Will be discharged home this afternoon (2) Elevated liver function tests: Secondary to gallstone cholecystitis (3) Cholelithiasis: Pt is 59 y/o F with PMH HTN, diastolic dysfunction presented to ER with c/o epigastric pain started last night. C/O epigastric pain that is sharp and radiates to back that started at 1am and lasted until noon today. Associated with chills when has the pain and vomiting. This has been intermittent over the past month. No ETOH use. Status post laparoscopic cholecystectomy As above (4) Hypertension: -Hold HCTZ at this time And hydrochlorothiazide on discharge (5) Diastolic dysfunction: H/O echo in 2019 with grade 1 diastolic dysfunction with EF: 60-65% Appears Euvolemic at this time DVT Prophylaxis -SCDs Full Code Follows with Dr Keyon Patel for routine care Likely discharge home this afternoon Admission and Anticipated Discharge Date Admission Date: September 16, 2019 Subjective The patient was seen and examined in the medical floor History 39-year-old obese female with past medical history of hypertension, diastolic dysfunction presented to ER with epigastric pain that was going towards the back and left shoulder Noted to have constant pancreatitis He is a status post EUS done today Has been complaining some cough but denies any other significant abdominal pain 09/18/2019 The patient is seen and examined in the medical floor She is a status post laparoscopic cholecystectomy Denies any significant symptoms except some discomfort in the abdomen 09/19/2019 The patient was seen and examined in medical floor She is a status post laparoscopic cholecystectomy and status post EUS for gallstone pancreatitis Denies any symptoms as of today Has been ambulating in the room and hallway without any problem and tolerating regular diet Review of Systems Review of Systems: All systems reviewed and are unremarkable except as noted below Gastrointestinal: no abdominal pain (Minimal right upper quadrant) Physical Exam Physical Exam: Sitting on a chair without any acute distress Constitutional: well developed, well nourished, + acute distress (Cough without shortness of breath) and + obese; not ill appearing Eyes: PERRL, conjunctivae normal, anicteric sclerae ENMT: external ear and nose normal, oropharynx normal Neck: trachea midline, no thyromegaly Respiratory: normal respiratory effort; no respiratory distress Auscultation: lungs clear to auscultation bilaterally Cardiovascular: Rate/Rhythm: regular rate and regular rhythm Heart Sounds: no murmur Gastrointestinal (Abdomen): Inspection/Auscultation: normal bowel sounds; abdomen not distended (Minimally distended) Percussion/Palpation: abdomen soft; abdomen nontender (Mildly tender) Neurologic: moves all extremities; no focal motor deficits Lymphatic: no cervical or axillary lymphadenopathy Results & Data Results & Data ([facility]) Vital Signs (Past 12 Hours) Vital Signs Temp Pulse Resp BP Pulse Ox 09/19/19 07:36 37.2 C 68 18 141/84 H 92 09/19/19 02:59 37 C 68 16 142/78 H 92 Laboratory Results Short CBC 09/19/19 Range/Units 07:10 WBC 6.96 (4.8-10.8) K/uL Hgb 12.0 (12.0-16.0) g/dL Hct 37.9 (37-47) % Plt Count 277 (130-400) K/uL BMP 09/19/19 09/19/19 07:10 08:03 Sodium 140 Potassium 3.7 Chloride 105 Carbon Dioxide 30 BUN 5 L Creatinine 0.75 Glucose 94 Calcium 9.1 Liver Function 09/19/19 09/19/19 Range/Units 07:10 08:03 Total Bilirubin 0.5 (0.2-1) mg/dl AST 47 H (15-37) U/L ALT 109 H (12-78) U/L Alkaline Phosphatase 96 (45-117) U/L Albumin 3.1 L (3.4-5.0) gm/dl Medications Administered Current Inpatient Medications Acetaminophen (Tylenol) 650 mg PO Q4H PRN PRN Reason: Pain Stop: 10/18/19 13:46 Albuterol (Ventolin Hfa) 2 puffs INH UD PRN PRN Reason: Shortness Of Breath Or Wheezing Stop: 10/18/19 13:35 Hydrochlorothiazide (Hctz) 25 mg PO DAILY ERIK Stop: 10/19/19 08:59 Last Admin: 09/19/19 08:45 Dose: 25 mg Documented by: Lactated Ringer's (Lr) 1,000 mls @ 80 mls/hr IV .[id number] ERIK Stop: 10/18/19 13:35 Last Admin: 09/19/19 08:44 Dose: 80 mls/hr Documented by: Morphine Sulfate (Morphine Sulfate) 2 mg IV Q4H PRN PRN Reason: Pain Stop: 09/30/19 18:04 Ondansetron HCl (Zofran) 4 mg IV Q6H PRN PRN Reason: Nausea Stop: 10/16/19 18:04 Oxycodone/Acetaminophen (Percocet 5mg/325mg) 1 tab PO Q4H PRN PRN Reason: Pain Stop: 10/02/19 13:35 Pantoprazole Sodium (Protonix) 40 mg PO DAILY [facility] Stop: 10/19/19 08:59 Last Admin: 09/19/19 08:45 Dose: 40 mg Documented by: (1) Pancreatitis Acute pancreatitis complication: no infection or necrosis Chronicity: acute Pancreatitis type: biliary Qualified Code(s): K85.10 - Biliary acute pancreatitis without necrosis or infection (2) Cholelithiasis Biliary obstruction: without biliary obstruction Cholecystitis presence: without cholecystitis Cholelithiasis location: gallbladder Qualified Code(s): K80.20 - Calculus of gallbladder without cholecystitis without obstruction
--- NOTE | 2019-09-20 08:14 | Discharge Summary ---
Date of Service September 20, 2019 Admission HPI Per Admitting Provider Pt is 59 y/o F with PMH HTN, diastolic dysfunction presented to ER with c/o epigastric pain started last night. C/O epigastric pain that is sharp and radiates to back that started at 1am and lasted until noon today. Associated with chills when has the pain and vomiting. Tried 2 Tylenol and Gaviscon without relief. Rated pain 10/10 on pain scale. Pain almost resolved prior to ER arrival today. Did eat meatloaf and mashed potatoes and gravy for dinner. Pt with intermittent heartburn and similar epigastric pain x 1 month. Has tried taking 2 tabs of Tylenol approx 4-5 times over the past month for this pain without r elief. Seen at PCP office on 09/11/2019 and had lipase of 1300, AST:52, ALT: 50. Seen in ER on 09/12/2019 and at that time had normal LFTs and lipase and benign CT abd/pelvis. Was started on Protonix for possible GERD. Denies fever, diaphoresis, diarrhea, constipation, melena, hematochezia, [place], dizziness, syncope, vision changes, neck pain, CP, SOB, orthopnea, palpitations, cough, sore throat, choking, otalgia, rhinorrhea, paresthesias, weakness, extremity weakness, extremity edema, rashes, urinary symptoms. Denies ETOH use. Admission Exam Per Admitting Provider Physical Exam: General: no distress, obese Head: normocephalic, atraumatic Eyes: EOM's intact, conjunctiva non-injected, anicteric ENT: normal inspection external ears, nose, mucous membranes moist Neck: supple, trachea midline Lungs: clear, no respiratory distress, no wheezing/rhonchi/rales CV: RRR, no murmur, no pretibial edema Abd: normal BS, soft,+tenderness to palpation epigastric region only Ext: no cyanosis, no calf tenderness Neuro: A&O x 3, no focal deficits noted, normal affect Skin: warm, dry Principal Diagnosis Gallstone pancreatitis, status post ERCP and status post cholecystectomy Discharge Exam Constitutional well developed, well nourished, + acute distress (Cough without shortness of breath) and + obese; not ill appearing Eyes PERRL, conjunctivae normal, anicteric sclerae ENMT external ear and nose normal, oropharynx normal Neck trachea midline, no thyromegaly Respiratory normal respiratory effort; no respiratory distress Auscultation: lungs clear to auscultation bilaterally Cardiovascular Rate/Rhythm: regular rate and regular rhythm Heart Sounds: no murmur Gastrointestinal (Abdomen) Inspection/Auscultation: normal bowel sounds; abdomen not distended (Minimally distended) Percussion/Palpation: abdomen soft; abdomen nontender (Mildly tender) Neurologic moves all extremities; no focal motor deficits Lymphatic no cervical or axillary lymphadenopathy Discharge Data Allergies Allergy/AdvReac Type Severity Reaction Status Date / Time No Known Allergies Allergy Unverified 09/16/19 14:29 Consultations 09/16/19 16:11 ED Decision to Admit Stat 09/16/19 18:05 Consult Gastroenterology Routine 09/17/19 09:05 Consult General Surgery Routine Procedures Performed Operation Date: 09/17/19 09:00 Actual Procedures p Endoscopic Retrograde Cholangiopancreatogram - Keyana Griffith s Endoscopic Ultrasonography Upper - Keyana Griffith Operation Date: 09/18/19 11:40 Actual Procedures p Laparoscopic Cholecystectomy(Not Applicable) - Steve Ferreira MD Ordered Studies 09/16/19 13:56 US abdomen limited Stat 09/16/19 18:05 MR MRCP Urgent 09/17/19 15:20 US upper EUS PACS images Routine Hospital Course (1) Pancreatitis: Gallstone pancreatitis N.p.o./IV fluid and IV pain medication Appreciate GI and surgery input with recommendation Status post EUS today 09/17/2019 Laparoscopic cholecystectomy Minimal pain in the abdomen otherwise medically stable Has been tolerating regular diet without any symptoms Will be discharged home this afternoon (2) Elevated liver function tests: Secondary to gallstone cholecystitis (3) Cholelithiasis: Pt is 59 y/o F with PMH HTN, diastolic dysfunction presented to ER with c/o epigastric pain started last night. C/O epigastric pain that is sharp and radiates to back that started at 1am and lasted until noon today. Associated with chills when has the pain and vomiting. This has been intermittent over the past month. No ETOH use. Status post laparoscopic cholecystectomy As above (4) Hypertension: -Hold HCTZ at this time And hydrochlorothiazide on discharge (5) Diastolic dysfunction: H/O echo in 2019 with grade 1 diastolic dysfunction with EF: 60-65% Appears Euvolemic at this time DVT Prophylaxis -SCDs Full Code Follows with Dr Keyon Patel for routine care Likely discharge home this afternoon Total Time Total Time Spent Total Time Spent (In Minutes): 35 minutes Total Time Includes: Examination of the Patient, Discharge Planning, Medication Reconciliation and Communication With Other Providers Discharge Plan Discharge Items Patient Disposition: Home - Self-Care Reason For Visit: PANCREATITIS Discharge Diagnosis: Gallstone pancreatitis, status post ERCP and status post cholecystectomy Condition on Discharge: Good Activity: Resume your previous activity Non-emergency contact: Primary Care Provider Call non-emergency contact if: you have any medication questions and your symptoms worsen Follow-up/Referrals: Isamar Gandara MD [Primary Care Provider] - 09/25/19 10:00 am (09/25/2019 10:00 AM Provider Isamar Patel MD Department Internal Medicine [facility] ) Diet: Low Fat Addtl Attending Provider Instructions: Please take precaution to avoid falls Take it easy regarding strenuous activity as advised 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 Sponge bath and wash hair in meantime. After 2 days, remove outer dressings and shower. Let water run over area and pat dry. - Leave steri strips on for one week and then remove. - Call the surgeon's office with any questions or concerns - - (ex. temperature higher than 101 degrees F, excessive bleeding or pain). MEDICATIONS: - Resume previous medications unless instructed otherwise by your surgeon. - Ibuprofen 600 mg every 6 hours as needed (take with food) - Tylenol 650 mg every 6 hours as needed for pain FOLLOW UP VISIT: - If not already scheduled, please call the office to schedule a two week follow-up appointment. Office number Pending Studies at Discharge: Yes (gallbladder pathology, will be reviewed at follow-up visit) Stand-Alone Forms: My [facility], Work/School Release (Inpt), Smoking Cessation Medications and DC Order Prescriptions: Continued pantoprazole 40 mg tablet,delayed release (DR/EC) 40 mg PO DAILY RF: 0 hydrochlorothiazide 25 mg tablet 25 mg PO DAILY RF: 0 albuterol sulfate 90 mcg/actuation HFA aerosol inhaler 2 puff INHALATION UD PRN (Reason: Shortness Of Breath Or Wheezing) RF: 0 Discharge Orders: Discharge Order (Routine); Ordered 09/19/19 Ordered By: Álvaro Turk Admission Data Admit Date/Time: 09/16/19 16:25 Attending Provider: Álvaro Turk Admit Provider: Joe Cazares Primary Care Provider: Isamar Gandara Other Providers: Joe Cazares ; Duncan Romero ; Steve Ferreira Other Interventions: Discharge Summary Assessment (RN) Last Done: 09/19/19 14:08 DC Date/Time DO NOT enter until pt leaves facility: 09/19/19 15:01
== END 2019-09-19 15:01 | disposition home or self-care (01) | DRG 417 ==
LOC: ED 12:44 → 3W 16:25 → SUATTDRO 16:25 → 3W 17:49